=== PATIENT | male | born 1980 | race Two or more races ===

== ENCOUNTER 2025-04-05 06:12 | Inpatient (IN) | payer OTHER ==
[2025-04-05] VITALS (24 sets, daily range): BP systolic 121–160; BP diastolic 74–104; PULSE 108–150; RESP 14–25; TEMP 98–98.2; O2SAT 89–97
[~2025-04-05] VITALS: Ht 175.3 cm; Wt 92.3 kg
[2025-04-05] MEDS: ONDANSETRON HCL 4 MG/2 ML VIAL IV ONE ×2 (06:31→09:26)
[2025-04-05] MEDS: SODIUM CHLORIDE 0.9% 1,000 ML IV ONE ×2 (06:31→11:20)
[2025-04-05] MEDS: MORPHINE SULFATE 4 MG/ML SYR/VIAL IV ONE ×2 (06:32→09:27)
[2025-04-05 06:49] LABS: Hematocrit 46.7 % (41.0-53.0); Hemoglobin 16.0 g/dL (13.5-17.5); Mean Corpuscular Hemoglobin 32.2 pg (28.0-32.0); Mean Corpuscular Volume 93.9 fL (80.0-100.0); Nucleated Red Blood Cells % 0.1 %
--- NOTE | 2025-04-05 06:54 | ED.PDOC ---
GI ASSESSMENT HPI Comments 44 y/o M, brought in by [facility], with PMHx of HTN, kidney disease, and prostate issues presents to the ED for CC of abdominal pain. Per [facility] medic, patient is coming from [facility] where he c/o abdominal pain onset, x2day. [employer] medic reports, while at their facility patient was diagnosed with pancreatitis, and transferred out to [facility] for a higher level of care. In route to the ED, patient was hypertensive in the 200's and was given 0.4mg of Nitro, Labetalol, and 4mg Zofran. Upon arrival to the Ed, patient remains hypertensive with a blood pressure of 185/111mmHg. At this time, patient c/o 7/10 periumbilical pain. Patient denies nausea, vomiting, diarrhea, fever, or chills. No other symptoms or modifying factors present at this time. Chief Complaint: Abdominal Pain Time Seen by MD: 06:20 Reviewed Notes: Nurses Notes, Trading Assistant Notes, Medications, Allergies Allergies: Coded Allergies: Bupropion (Verified Allergy, Intermediate, EDEMA/RASHES, 04/05/25) Information Source: Patient, Emergency Med Personnel Mode of Arrival: EMS Timing: Days Duration: Since onset Prehospital treatment: None Quality: None Vomitus: None Stool: Normal Severity: Moderate Recent: None Recent Hx of: None Pain Location: Periumbilical Modifying Factors: Nothing Associated sign and symptoms: Abdominal Pain Past Medical History PAST MEDICAL HISTORY: CKF, HTN Surgical History: Denies all surgeries Family History Family History: Unknown Social History Smoker: Non-Smoker Alcohol: Denies ETOH Use Drugs: Denies Drug Use Lives In: Home Constitutional: denies: chills, diaphoresis, fatigue, fever, malaise, sweats, weakness, others EENTM: denies: blurred vision, double vision, ear bleeding, ear discharge, ear drainage, ear pain, ear ringing, eye pain, eye redness, hearing loss, mouth pain, mouth swelling, nasal discharge, nose bleeding, nose congestion, nose pain, photophobia, tearing, throat pain, throat swelling, voice changes, others Respiratory: denies: cough, hemoptysis, orthopnea, SOB at rest, shortness of breath, SOB with excertion, stridor, wheezing, others Cardiovascular: denies: chest pain, dizzy spells, diaphoresis, Dyspnea on exertion, edema, irregular heart beat, left arm pain, lightheadedness, palpitations, PND, syncope, others Gastrointestinal: reports: abdominal pain; denies: abdomen distended, blood streaked bowels, constipated, diarrhea, dysphagia, difficulty swallowing, hematemesis, melena, nausea, poor appetite, poor fluid intake, rectal bleeding, rectal pain, vomiting, others Genitourinary: denies: burning, dysuria, flank pain, frequency, hematuria, incontinence, penile discharge, penile sore, pain, testicle pain, testicle swelling, urgency, others Neurological: denies: dizziness, fainting, headache, left sided numbness, left sided weakness, numbness, paresthesia, pre-existing deficit, right sided numbness, right sided weakness, seizure, speech problems, tingling, tremors, weakness, others Musculoskeletal: denies: back pain, gout, joint pain, joint swelling, muscle pain, muscle stiffness, neck pain, others Integumetry: denies: bruises, change in color, change in hair/nails, dryness, laceration, lesions, lumps, rash, wounds, others Allergic/Immunocompromised: denies: Difficulty Healing, Frequent Infections, Hives, Itching, others Hematologic/Lymphatic: denies: anemia, blood clots, easy bleeding, easy bruising, swollen glands, others Endocrine: denies: excessive hunger, excessive sweating, excessive thirst, excessive urination, flushing, intolerance to cold, intolerance to heat, unexplained weight gain, unexplained weight loss, others Psychiatric: denies: anxiety, bipolar disorder, depression, hopeless, panic disorder, schizophrenia, sleepless, suicidal, others All Other Systems: Reviewed and Negative Physical Exam General Appearance: No Apparent Distress, Normal HEENT: Normal ENT Inspection, Pharynx Normal Neck: Full Range of Motion, Non-Tender, Normal, Normal Inspection Respiratory: Chest Non-Tender, Lungs Clear, No Accessory Muscle Use, No Respiratory Distress, Normal Breath Sounds Cardiovascular: No Edema, No Murmur, No Gallop, Normal Peripheral Pulses, Regular Rate/Rhythm Breast Exam: Deferred Gastrointestinal: No Organomegaly, No Pulsatile Mass, Normal Bowel Sounds, Tenderness (periumbilical ) Genitalia: Deferred Pelvic: Deferred Rectal: Deferred Extremities: No calf tenderness, Normal capillary refill, Normal inspection, Normal range of motion, Non-tender, No pedal edema Musculoskeletal : Apperance: Normal Neurologic: Alert, die try out worker II-XII nml as Tested, No Motor Deficits, Normal Affect, Normal Mood, No Sensory Deficits Cerebellar Function: Normal Reflexes: Normal Skin: Dry, Normal Color, Warm Lymphatic: No Adenopathy Was a procedure done? Was a procedure done?: No GI differential Dx Differential Diagnosis: Pancreatitis X-Ray, Labs, Meds, VS Vital Signs Date Time Temp Pulse Resp B/P (MAP) Pulse Ox O2 Delivery O2 Flow Rate FiO2 04/05/25 07:02 105 19 177/125 (142) 94 04/05/25 07:01 101 19 177/125 04/05/25 06:40 94 Room Air* 0 21 04/05/25 06:38 97.9 121 18 186/117 (140) 95 97.9 04/05/25 06:32 102 17 186/117 04/05/25 06:26 99.6 105 16 185/111 (135) 96 99.6 Lab Test 04/05/25 06:30 Range/Units White Blood Count 12.3 H 4.4-10.8 10^3/uL Red Blood Count 4.98 4.5-5.90 10^6/uL Hemoglobin 16.0 13.5-17.5 g/dL Hematocrit 46.7 41.0-53.0 % Mean Corpuscular Volume 93.9 80.0-100.0 fL Mean Corpuscular Hemoglobin 32.2 H 28.0-32.0 pg Mean Corpuscular Hemoglobin Concent 34.3 32.0-36.0 g/dL Red Cell Distribution Width 15.2 H 11.8-14.3 % Platelet Count 326 140-450 10^3/uL Mean Platelet Volume 7.6 6.9-10.8 fL Neutrophils (%) (Auto) 83.9 H 37.0-80.0 % Lymphocytes (%) (Auto) 7.3 L 10.0-50.0 % Monocytes (%) (Auto) 8.0 0.0-12.0 % Eosinophils (%) (Auto) 0.1 0.0-7.0 % Basophils (%) (Auto) 0.7 0.0-2.0 % Neutrophils # (Auto) 10.3 H 1.6-8.6 10 ^3/uL Lymphocytes # (Auto) 0.9 0.4-5.4 10 ^3/uL Monocytes # (Auto) 1.0 0-1.3 10 ^3/uL Eosinophils # (Auto) 0 0-0.8 10 ^3/uL Basophils # (Auto) 0.1 0-0.2 10 ^3/uL Nucleated Red Blood Cells 0.1 % Sodium Level 136 136-145 mmol/L Potassium Level 4.6 3.5-5.1 mmol/L Chloride Level 103 98-107 mmol/L Carbon Dioxide Level 24 20-31 mmol/L Anion Gap 9 5-15 Blood Urea Nitrogen 8 L 9-23 mg/dL Creatinine 1.28 0.700-1.30 mg/dL Glomerular Filtration Rate Calc 70 >90 mL/min BUN/Creatinine Ratio 6.3 L 10.0-20.0 Serum Glucose 140 H 74-106 mg/dL Calcium Level 11.2 H 8.7-10.4 mg/dL Total Bilirubin 0.9 0.2-1.0 mg/dL Aspartate Amino Transferase (AST) 35 13-40 U/L Alanine Aminotransferase (ALT) 15 7-40 U/L Alkaline Phosphatase 54 46-116 U/L Total Protein 7.1 5.7-8.2 g/dL Albumin 4.9 H 3.2-4.8 g/dL Lipase 495 H 12-53 U/L Current Medications Medications (Trade) Dose Ordered Sig/Yunior Route Start Time Stop Time Status Last Admin Sodium Chloride 1,000 ml @ 1,000 mls/hr Q1H ONCE IV 04/05/25 06:30 04/05/25 07:29 DC 04/05/25 06:31 Ondansetron HCl (Zofran) 4 mg ONCE ONCE IV 04/05/25 06:30 04/05/25 06:31 DC 04/05/25 06:31 Morphine Sulfate 4 mg ONCE ONCE IV 04/05/25 06:30 04/05/25 06:31 DC 04/05/25 06:32 Time of 1ST Reevaluation: 06:50 Reevaluation 1ST: Unchanged Patient Education/Counseling: Diagnosis, Treatment Family Education/Counseling: No Family Present SEPSIS Sepsis Screen Date sepsis recognized/suspect: Apr 05, 2025 Time Sepsis recognized/suspect: 611 Recent Procedure: No On Antibiotic Therapy: No Respiratory Rate >20: No Heart Rate >90: Yes Temp<36 C (96.8 F) or >38.3 C: No SBP <90 or MAP <65 mmHG: No New Acute Mental Status Change: No Is the patient on CPAP, BIPAP,: No Physician Orders Urinalysis (04/05/25 06:18) Vital Signs Date Time Temp Pulse Resp B/P (MAP) Pulse Ox O2 Delivery O2 Flow Rate FiO2 04/05/25 07:02 105 19 177/125 (142) 94 04/05/25 07:01 101 19 177/125 04/05/25 06:40 94 Room Air* 0 21 04/05/25 06:38 97.9 121 18 186/117 (140) 95 97.9 04/05/25 06:32 102 17 186/117 04/05/25 06:26 99.6 105 16 185/111 (135) 96 99.6 Laboratory Tests Test 04/05/25 06:30 White Blood Count 12.3 10^3/uL (4.4-10.8) H Medications Medications Dose Ordered Sig/Yunior Route Start Time Stop Time Status Last Admin Dose Admin Morphine Sulfate 4 mg ONCE ONCE IV 04/05/25 06:30 04/05/25 06:31 DC 04/05/25 06:32 Ondansetron HCl 4 mg ONCE ONCE IV 04/05/25 06:30 04/05/25 06:31 DC 04/05/25 06:31 Sodium Chloride 1,000 ml @ 1,000 mls/hr Q1H ONCE IV 04/05/25 06:30 04/05/25 07:29 DC 04/05/25 06:31 Departure 1 Departure Time of Disposition: 08:09 (Patient was a transfer from [facility]. Patient with necrotizing pancreatitis and intractable abdominal pains and with the outside hospital. Patient labs and CT scan performed there. Patient was treated with Zosyn. We will give patient fluids antibiotics pain medication and admit patient for further workup) Impression: Primary Impression: Acute necrotizing pancreatitis Additional Impression: Intractable abdominal pain Disposition: 09 ADMITTED INPATIENT Admit to: Med Surg Condition: Guarded Critical Care Note Critical Care Time?: Yes Critical care comment: Intractable abdominal pain Authorized and Performed by: Rohini Villar MD Total critical care time: Approximately thirty-nine minutes Due to a high probability of clinically significant, life threatening deterioration, the patient required my highest level of preparedness to intervene emergently and I personally spent this critical care time directly and personally managing the patient. This critical care time included obtaining a history; examining the patient; pulse oximetry; ordering and review of studies; arranging urgent treatment with development of a management plan; evaluation of patient's response to treatment; frequent reassessment; and, discussions with other providers. This critical care time was performed to assess and manage the high probability of imminent, life-threatening deterioration that could result in multi-organ failure. It was exclusive of separately billable procedures and treating other patients and teaching time. Please see my other sections and the rest of the note for further information on patient assessment and treatment. Stability Stability form required: No Heart Score Heart Score: Heart Score Response (Comments) Value History N/A 0 EKG N/A 0 Age N/A 0 Risk Factors N/A 0 Troponin N/A 0 Total 0 I personally scribed for ROHINI VILLAR MD ([email or web address]) on 04/05/25 at 06:54. Electronically submitted by Loretta Palomo ([email or web address]). ROHINI VILLAR MD Apr 05, 2025 06:54
[2025-04-05 07:05] LABS: Alanine Aminotransferase 15 U/L (7-40); Alkaline Phosphatase 54 U/L (46-116); Anion Gap 9 (5-15); BUN/Creatinine Ratio 6.3 (10.0-20.0); Carbon Dioxide 24 mmol/L (20-31); Chloride 103 mmol/L (98-107); Potassium 4.6 mmol/L (3.5-5.1); Sodium 136 mmol/L (136-145); Total Protein 7.1 g/dL (5.7-8.2)
[2025-04-05 07:06] LABS: Albumin 4.9 g/dL (3.2-4.8); Bilirubin, Total 0.9 mg/dL (0.2-1.0); Blood Urea Nitrogen 8 mg/dL (9-23); Calcium 11.2 mg/dL (8.7-10.4); Glucose 140 mg/dL (74-106)
[2025-04-05 07:29] LABS: Lipase 495 U/L (12-53)
[2025-04-05] MEDS: LISINOPRIL 5 MG TAB PO ONE (08:23)
--- NOTE | 2025-04-05 08:29 | DVHHP2 ---
Review of Systems Allergies: Coded Allergies: Bupropion (Verified Allergy, Intermediate, EDEMA/RASHES, 04/05/25) Exam Vital Signs Vital Signs Date Time Temp Pulse Resp B/P (MAP) Pulse Ox O2 Delivery O2 Flow Rate FiO2 04/05/25 08:23 192/128 04/05/25 07:02 105 19 94 04/05/25 06:40 Room Air* 0 21 04/05/25 06:38 97.9 97.9 Labs/Xrays Labs Test 04/05/25 06:30 Range/Units White Blood Count 12.3 H 4.4-10.8 10^3/uL Red Blood Count 4.98 4.5-5.90 10^6/uL Hemoglobin 16.0 13.5-17.5 g/dL Hematocrit 46.7 41.0-53.0 % Mean Corpuscular Volume 93.9 80.0-100.0 fL Mean Corpuscular Hemoglobin 32.2 H 28.0-32.0 pg Mean Corpuscular Hemoglobin Concent 34.3 32.0-36.0 g/dL Red Cell Distribution Width 15.2 H 11.8-14.3 % Platelet Count 326 140-450 10^3/uL Mean Platelet Volume 7.6 6.9-10.8 fL Neutrophils (%) (Auto) 83.9 H 37.0-80.0 % Lymphocytes (%) (Auto) 7.3 L 10.0-50.0 % Monocytes (%) (Auto) 8.0 0.0-12.0 % Eosinophils (%) (Auto) 0.1 0.0-7.0 % Basophils (%) (Auto) 0.7 0.0-2.0 % Neutrophils # (Auto) 10.3 H 1.6-8.6 10 ^3/uL Lymphocytes # (Auto) 0.9 0.4-5.4 10 ^3/uL Monocytes # (Auto) 1.0 0-1.3 10 ^3/uL Eosinophils # (Auto) 0 0-0.8 10 ^3/uL Basophils # (Auto) 0.1 0-0.2 10 ^3/uL Nucleated Red Blood Cells 0.1 % Sodium Level 136 136-145 mmol/L Potassium Level 4.6 3.5-5.1 mmol/L Chloride Level 103 98-107 mmol/L Carbon Dioxide Level 24 20-31 mmol/L Anion Gap 9 5-15 Blood Urea Nitrogen 8 L 9-23 mg/dL Creatinine 1.28 0.700-1.30 mg/dL Glomerular Filtration Rate Calc 70 >90 mL/min BUN/Creatinine Ratio 6.3 L 10.0-20.0 Serum Glucose 140 H 74-106 mg/dL Calcium Level 11.2 H 8.7-10.4 mg/dL Total Bilirubin 0.9 0.2-1.0 mg/dL Aspartate Amino Transferase (AST) 35 13-40 U/L Alanine Aminotransferase (ALT) 15 7-40 U/L Alkaline Phosphatase 54 46-116 U/L Total Protein 7.1 5.7-8.2 g/dL Albumin 4.9 H 3.2-4.8 g/dL Lipase 495 H 12-53 U/L SEPSIS Sepsis Screen Date sepsis recognized/suspect: Apr 05, 2025 Time Sepsis recognized/suspect: 641 Recent Procedure: No On Antibiotic Therapy: No Respiratory Rate >20: No Heart Rate >90: Yes (104BPM) Temp<36 C (96.8 F) or >38.3 C: No SBP <90 or MAP <65 mmHG: No New Acute Mental Status Change: No Is the patient on CPAP, BIPAP,: No Physician Orders Urinalysis (04/05/25 06:18) Vital Signs Date Time Temp Pulse Resp B/P (MAP) Pulse Ox O2 Delivery O2 Flow Rate FiO2 04/05/25 08:23 192/128 04/05/25 07:02 105 19 177/125 (142) 94 04/05/25 07:01 101 19 177/125 04/05/25 06:40 94 Room Air* 0 21 04/05/25 06:38 97.9 121 18 186/117 (140) 95 97.9 04/05/25 06:32 102 17 186/117 04/05/25 06:26 99.6 105 16 185/111 (135) 96 99.6 Laboratory Tests Test 04/05/25 06:30 White Blood Count 12.3 10^3/uL (4.4-10.8) H Medications Medications Dose Ordered Sig/Yunior Route Start Time Stop Time Status Last Admin Dose Admin Lisinopril 10 mg ONCE ONCE PO 04/05/25 08:15 04/05/25 08:17 DC 04/05/25 08:23 10 MG Morphine Sulfate 4 mg ONCE ONCE IV 04/05/25 06:30 04/05/25 06:31 DC 04/05/25 06:32 4 MG Ondansetron HCl 4 mg ONCE ONCE IV 04/05/25 06:30 04/05/25 06:31 DC 04/05/25 06:31 4 MG Sodium Chloride 1,000 ml @ 1,000 mls/hr Q1H ONCE IV 04/05/25 06:30 04/05/25 07:29 DC 04/05/25 06:31 1,000 MLS/HR Assessment/Plan Assessment/Plan acute pancreatitis ordered ct scan fu results Ordered Zosyn ordered IV fluids N.p.o. Ordered Dilaudid as needed for pain will order am lipase ldh, crp Replace electrolytes acute hypertension emergency ordered hydralazine prn elevated blood pressure acute leukocytosis ordered zosyn chronic problems htn kidney disease prostate issues ckf htn fen/ppx npo ivf protonix scd plan admit to medicine MASOUD MCCALLUM [facility] Apr 05, 2025 08:29
[2025-04-05] MEDS: LABETALOL HCL 20 MG/4 ML VL IV ONE ×2 (09:26→13:13)
[2025-04-05] MEDS: PIPERACILLIN-TAZOB 3.375GM 100 ML IV ONE ×2 (09:34→10:15)
--- NOTE | 2025-04-05 09:48 | PRN ---
Misceleneous Note Note Note Patient was transferred here for higher level of care when reviewing his CT scan of the abdomen pelvis with IV contrast from outside hospital patient was found to have necrotizing pancreatitis. Prior to my admission patient will need to have agreement with GI that they will follow up with the patient. Informed ER two consult GI. Did talk with surgery stating that this is not a surgical patient. We will hold admission until ER speaks to GI MASOUD MCCALLUM DNP Apr 05, 2025 09:48
--- NOTE | 2025-04-05 09:54 | DVH ---
INDICATION: PANCREATITIS TECHNIQUE: Multiple real-time sonographic images were obtained of the right upper quadrant. COMPARISON: None FINDINGS: The liver demonstrates coarsened echotexture without focal mass lesions. The liver measures 17 cm. There is no intrahepatic or extrahepatic ductal dilatation. The common duct measures 5 mm. Trace ascites. The gallbladder is without evidence of stone or sludge. The gallbladder wall measures 3 mm and is wi thin normal limits. The right kidney measures 11.3 cm. The right kidney is normal in contour, size, and shape. The echog enicity is normal. There is no hydronephrosis. The pancreas is not well visualized due to overlying bowel gas. IMPRESSION: Coarsened liver echotexture. Trace ascites. No shadowing gallstones.
[2025-04-05] MEDS: SODIUM CHLORIDE 0.9% 1,000 ML IV SCH ×2 (09:56→11:08)
[2025-04-05] MEDS ORDERED: DOCUSATE SOD 100 MG CAP PO PRN (10:15)
[2025-04-05] MEDS ORDERED: NITROGLYCERIN 0.4 MG SL TAB SL PRN (10:15)
[2025-04-05] MEDS ORDERED: ONDANSETRON HCL 4 MG/2 ML VIAL IV PRN (10:15)
--- NOTE | 2025-04-05 10:20 | DVHHP2 ---
History of Present Illness Reason for Visit: transfer for pancreatitis History of Present Illness 44-year-old male past medical history hypertension kidney disease prostate issues CK F chief complaint [facility] [employer] [facility] has been medically there he was transferred from Replaced by [facility] due to having acute pancreatitis. Patient states he had being smears abdominal pain for two days he did state he has a nausea and vomiting but there was no blood in his vomiting no diarrhea he has no fever no chest pain no shortness with the breath patient has no history of pancreatitis in the past when speaking with him he denies drinking smoking or drug use. When evaluating patient's chart from prior patient was found to have a CT scan with IV contrast showing necrotizing pancreatitis. Patient was also found to be hypertension [id number]. With the heart rate of 110. When evaluating patient's labs and imaging from here lisinopril was provided morphine and Zofran normal saline was given white count was 12.3 calcium 11.2 albumin was found to be 4.9, lipase was found to be 495 otherwise CBC and CMP unremarkable reviewed CT scan with shows necrotizing pancreatitis. With these findings we will admit. This speak with GI team states we will follow patient monitor patient's while admitted. Past Medical History See HPI above Past Surgical History See HPI above Family History Reviewed, non-contributory to the management of this case. Past Social History The patient lives at home, denies smoking, alcohol or illicit drugs abuse. Review of Systems Constitutional: No: Fever, Chills, Sweats, Weakness, Malaise, Other Eyes: No: Pain, Vision change, Conjunctivae inflammation, Eyelid inflammation, Other, Redness ENT: No: Ear pain, Ear discharge, Nose pain, Nose discharge, Nose congestion, Mouth pain, Mouth swelling, Throat pain, Throat swelling, Other Respiratory: No: Cough, Dry, Shortness of breath, SOB with excertion, Wheezing, Hemoptysis, Pleuritic Pain, Sputum, Wheezing, Other Cardiovascular: No: Chest Pain, Palpitations, Orthopnea, Paroxysmal Noc. Dyspnea, Edema, Lt Headedness, Other Gastrointestinal: Nausea, Vomiting, Abdominal Pain; No: Diarrhea, Constipation, Melena, Hematochezia, Other Genitourinary: No Dysuria, No Frequency, No Incontinence, No Hematuria, No Retention, No Other Musculoskeletal: No: other, neck pain, shoulder pain, arm pain, back pain, hand pain, leg pain, foot pain Skin: No: Rash, Lesions, Jaundice, Bruising, Other Neurological: No: Weakness, Numbness, Incoordination, Change in speech, Confusion, Seizures, Other Allergies: Coded Allergies: Bupropion (Verified Allergy, Intermediate, EDEMA/RASHES, 04/05/25) Medications Current Medications Medications Dose Ordered Sig/Yunior Route Start Time Stop Time Status Last Admin Dose Admin Sodium Chloride 1,000 ml @ 100 mls/hr Q10H IV 04/05/25 09:30 04/05/25 09:56 100 MLS/HR Exam Vital Signs Vital Signs Date Time Temp Pulse Resp B/P (MAP) Pulse Ox O2 Delivery O2 Flow Rate FiO2 04/05/25 09:57 94 18 146/94 04/05/25 09:42 98 04/05/25 07:30 98.0 98.0 04/05/25 07:30 Room Air* 0 21 General Appearance: Alert, Oriented X3, Cooperative, mild distress HEENT: Atraumatic, PERRLA, EOMI, Mucous membr. moist/pink Respiratory: Clear to auscultation, Normal air movement Cardiovascular: Regular rate, Normal S1, Normal S2, No murmurs Abdominal: Normal bowel sounds, Soft, No hepatospenomegaly, No masses, Other (upper abd guarding and rebound tenderness) Extremities: No clubbing, No cyanosis, No edema, Normal pulses, No tenderness/swelling Skin: No rashes, No breakdown, No significant lesion Neuro: Normal gait, Normal speech, Strength at 5/5 X4 ext, Normal tone, Sensation intact, Cranial nerves 3-12 NL Psych/Mental Status: Mental status NL, Mood NL Labs/Xrays Reviewed CT scan from outside hospital shows necrotizing pancreatitis I reviewed labs, imaging CT scan abdomen pelvis, EKG and all diagnostic studies on this patient from ED records and the medical chart Labs Test 04/05/25 06:30 Range/Units White Blood Count 12.3 H 4.4-10.8 10^3/uL Red Blood Count 4.98 4.5-5.90 10^6/uL Hemoglobin 16.0 13.5-17.5 g/dL Hematocrit 46.7 41.0-53.0 % Mean Corpuscular Volume 93.9 80.0-100.0 fL Mean Corpuscular Hemoglobin 32.2 H 28.0-32.0 pg Mean Corpuscular Hemoglobin Concent 34.3 32.0-36.0 g/dL Red Cell Distribution Width 15.2 H 11.8-14.3 % Platelet Count 326 140-450 10^3/uL Mean Platelet Volume 7.6 6.9-10.8 fL Neutrophils (%) (Auto) 83.9 H 37.0-80.0 % Lymphocytes (%) (Auto) 7.3 L 10.0-50.0 % Monocytes (%) (Auto) 8.0 0.0-12.0 % Eosinophils (%) (Auto) 0.1 0.0-7.0 % Basophils (%) (Auto) 0.7 0.0-2.0 % Neutrophils # (Auto) 10.3 H 1.6-8.6 10 ^3/uL Lymphocytes # (Auto) 0.9 0.4-5.4 10 ^3/uL Monocytes # (Auto) 1.0 0-1.3 10 ^3/uL Eosinophils # (Auto) 0 0-0.8 10 ^3/uL Basophils # (Auto) 0.1 0-0.2 10 ^3/uL Nucleated Red Blood Cells 0.1 % Sodium Level 136 136-145 mmol/L Potassium Level 4.6 3.5-5.1 mmol/L Chloride Level 103 98-107 mmol/L Carbon Dioxide Level 24 20-31 mmol/L Anion Gap 9 5-15 Blood Urea Nitrogen 8 L 9-23 mg/dL Creatinine 1.28 0.700-1.30 mg/dL Glomerular Filtration Rate Calc 70 >90 mL/min BUN/Creatinine Ratio 6.3 L 10.0-20.0 Serum Glucose 140 H 74-106 mg/dL Calcium Level 11.2 H 8.7-10.4 mg/dL Total Bilirubin 0.9 0.2-1.0 mg/dL Aspartate Amino Transferase (AST) 35 13-40 U/L Alanine Aminotransferase (ALT) 15 7-40 U/L Alkaline Phosphatase 54 46-116 U/L Total Protein 7.1 5.7-8.2 g/dL Albumin 4.9 H 3.2-4.8 g/dL Lipase 495 H 12-53 U/L SEPSIS Sepsis Screen Date sepsis recognized/suspect: Apr 05, 2025 Time Sepsis recognized/suspect: 729 Recent Procedure: No On Antibiotic Therapy: Yes Respiratory Rate >20: No Heart Rate >90: Yes Temp<36 C (96.8 F) or >38.3 C: No SBP <90 or MAP <65 mmHG: No New Acute Mental Status Change: No Is the patient on CPAP, BIPAP,: No Physician Orders Urinalysis (04/05/25 06:18) * Gi Dvh Pesticide Applicator (04/05/25 09:17) Abdomen Limited (04/05/25 09:17) Sodium Chloride 0.9% (04/05/25 09:30) Piperacillin-Tazob 3.375gm (Zosyn 3.375g (04/05/25 09:30) * Surgical Consult (04/05/25 ) Admit (04/05/25 10:03) Allergies (04/05/25 10:03) Code Status (04/05/25 10:03) 0.9% Ns 1000 Ml (04/05/25 10:15) Ondansetron Hcl (Zofran) (04/05/25 10:15) Docusate Sodium Capsule (Colace Capsule) (04/05/25 10:15) Complete Blood Count (04/06/25 04:00) Comprehensive Metabolic Panel (04/06/25 04:00) Npo (Nothing By Mouth) Diet (04/05/25 Lunch) Condition: Serious (04/05/25 10:03) BRP (04/05/25 10:03) Morphine Sulfate Injection (04/05/25 10:15) Nitroglycerin Sublingual (Ntrostat Subli (04/05/25 10:15) Stat Ekg For Chest Pain (04/05/25 10:03) Notify Md Of Changes From Base (04/05/25 10:03) Tow Motor Driver For 24 Hours (04/05/25 10:03) Emergency Dysrhythmia Protocol (04/05/25 10:03) Rhythm Strips Once Every Shift (04/05/25 10:03) Oxygen By Nasal Cannula (04/05/25 10:03) Zosyn Extended Infusion (04/05/25 12:00) Zosyn Extended Infusion (04/05/25 10:15) Blood Culture (04/05/25 10:03) Lipase (04/06/25 04:00) Vital Signs Date Time Temp Pulse Resp B/P (MAP) Pulse Ox O2 Delivery O2 Flow Rate FiO2 04/05/25 09:57 94 18 146/94 04/05/25 09:42 110 18 159/96 (117) 98 04/05/25 09:27 105 18 200/124 04/05/25 09:26 105 200/124 04/05/25 09:07 108 04/05/25 08:23 192/128 04/05/25 07:30 98.0 108 14 181/137 (152) 94 98.0 04/05/25 07:30 108 14 94 Room Air* 0 21 04/05/25 07:02 105 19 177/125 (142) 94 04/05/25 07:01 101 19 177/125 04/05/25 06:40 94 Room Air* 0 04/05/25 06:38 97.9 121 18 186/117 (140) 95 97.9 04/05/25 06:32 102 17 186/117 04/05/25 06:26 99.6 105 16 185/111 (135) 96 99.6 Laboratory Tests Test 04/05/25 06:30 White Blood Count 12.3 10^3/uL (4.4-10.8) H Medications Medications Dose Ordered Sig/Yunior Route Start Time Stop Time Status Last Admin Dose Admin Labetalol HCl 20 mg ONCE ONCE IV 04/05/25 09:15 04/05/25 09:16 DC 04/05/25 09:26 20 MG Lisinopril 10 mg ONCE ONCE PO 04/05/25 08:15 04/05/25 08:17 DC 04/05/25 08:23 10 MG Morphine Sulfate 4 mg ONCE ONCE IV 04/05/25 06:30 04/05/25 06:31 DC 04/05/25 06:32 4 MG Morphine Sulfate 4 mg ONCE ONCE IV 04/05/25 09:15 04/05/25 09:16 DC 04/05/25 09:27 4 MG Ondansetron HCl 4 mg ONCE ONCE IV 04/05/25 06:30 04/05/25 06:31 DC 04/05/25 06:31 4 MG Ondansetron HCl 4 mg ONCE ONCE IV 04/05/25 09:15 04/05/25 09:16 DC 04/05/25 09:26 4 MG Piperacillin Sod/ Tazobactam Sod 100 ml @ 100 mls/hr ONCE ONCE IV 04/05/25 09:30 04/05/25 10:29 04/05/25 09:34 100 MLS/HR Sodium Chloride 1,000 ml @ 100 mls/hr Q10H IV 04/05/25 09:30 04/05/25 09:56 100 MLS/HR Sodium Chloride 1,000 ml @ 1,000 mls/hr Q1H ONCE IV 04/05/25 06:30 04/05/25 07:29 DC 04/05/25 06:31 1,000 MLS/HR Assessment/Plan Assessment/Plan acute necrotizing pancreatitis found on outside ct scan from [facility] Ordered Zosyn ordered IV fluids N.p.o. Ordered morphine as needed for pain will order am lipase Replace electrolytes ordered GI consult fu results ordered us fu results ordered am lipase acute hypertension emergency ordered labetolol prn elevated blood pressure if persistent elevation will need to consider nicardipine drip acute hypercalcemia corrected ca 10.48 ordered ivf for now acute leukocytosis likely from pancreatitis ordered zosyn chronic problems htn kidney disease prostate issues ckf htn fen/ppx npo ivf protonix scd plan admit to medicine Plan discussed with: Patient My Orders Orders - MASOUD MCCALLUM DNP Procedure Category Date Status Time * Gi Dvh Pesticide Applicator CONS 04/05/25 Transmitted 09:17 Abdomen Limited US 04/05/25 Resulted 09:17 Sodium Chloride 0.9% PHA 04/05/25 In Process 09:30 Piperacillin-Tazob PHA 04/05/25 In Process 3.375gm (Zosyn 3.375g 09:30 * Surgical Consult CONS 04/05/25 Transmitted Admit ADMIT 04/05/25 Verified 10:03 Allergies ANDRA 04/05/25 Verified 10:03 Code Status CODE 04/05/25 Verified 10:03 0.9% Ns 1000 Ml PHA 04/05/25 Verified 10:15 Ondansetron Hcl PHA 04/05/25 Verified (Zofran) 10:15 Docusate Sodium PHA 04/05/25 Verified Capsule (Colace 10:15 Complete Blood Count LAB 04/06/25 Verified 04:00 Comprehensive LAB 04/06/25 Verified Metabolic Panel 04:00 Npo (Nothing By DIET 04/05/25 Verified Mouth) Diet Lunch Condition: Serious ANDRA 04/05/25 Verified 10:03 BRP [facility] 04/05/25 Verified 10:03 Morphine Sulfate PHA 04/05/25 Verified Injection 10:15 Nitroglycerin PHA 04/05/25 Verified Sublingual (Ntrostat 10:15 Stat Ekg For Chest [facility] 04/05/25 Verified Pain 10:03 Notify Md Of Changes [facility] 04/05/25 Verified From Base 10:03 Tow Motor Driver For [facility] 04/05/25 Verified 24 Hours 10:03 Emergency Dysrhythmia [facility] 04/05/25 Verified Protocol 10:03 Rhythm Strips Once [facility] 04/05/25 Verified Every Shift 10:03 Oxygen By Nasal RT 04/05/25 Verified Cannula 10:03 Zosyn Extended PHA 04/05/25 Verified Infusion 12:00 Zosyn Extended PHA 04/05/25 Verified Infusion 10:15 Blood Culture KRISTA 04/05/25 Verified 10:03 Lipase LAB 04/06/25 Verified 04:00 Date of Service: Apr 05, 2025 Billing Provider: MASOUD MCCALLUM DNP Common Visit Codes: [id number] INP/OBS CARE (HIGH) MASOUD MCCALLUM DNP Apr 05, 2025 10:20
[2025-04-05] MEDS ORDERED: PIPERACILLIN-TAZOB 3.375GM 100 ML IV SCH (12:00)
[2025-04-05] MEDS: MORPHINE SULFATE INJ 2 MG/ml SYRG IV PRN (12:11)
--- NOTE | 2025-04-05 12:31 | DVHINCON2 ---
GI Consult Consult Note GI consult note Date of Consultation: 04/05/2025 Chief Complaint: Pancreatitis Referring Physician: Pawan NAVAS H&P: 44-year-old male brought in by the [facility], with past medical history of hypertension, kidney stones and prostate issues with complains of abdominal pain and diagnosed with possible necrotizing pancreatitis by CT abdomen pelvis with IV contrast at the [facility] Patient admits to abdominal pain for two days, periumbilical to generalized area. No nausea or vomiting. Denies melena or red blood in stool. Patient denies alcohol use. No history of hepatitis. Admits to being diagnosed with elevated cholesterol and triglycerides about a year and a half ago, no treatment for this Past Medical History: CKF, hypertension, kidney stones Past Surgical History: Denies Social History: NO smoking, drinking ETOH and use of illegal drugs. Family History: Noncontributory Review of Systems: Constitutional: no fever, chill, weight loss HEENT: no eye pain, no hearing loss, no oral lesion, no scleral icterus Heart: no chest pain, no chest pressure Lung: no cough, no dyspnea with exertion Abdomen: see HPI Physical exam: General: NAD, AAOX3 Chest: lung elizabeth clear to auscultation Heart: RRR, no murmur Abdomen: Upper abdomen tenderness to palpation, +BS, no hepatosplenomegaly Labs: Labs Test 04/05/25 06:30 Range/Units White Blood Count 12.3 H 4.4-10.8 10^3/uL Red Blood Count 4.98 4.5-5.90 10^6/uL Hemoglobin 16.0 13.5-17.5 g/dL Hematocrit 46.7 41.0-53.0 % Mean Corpuscular Volume 93.9 80.0-100.0 fL Mean Corpuscular Hemoglobin 32.2 H 28.0-32.0 pg Mean Corpuscular Hemoglobin Concent 34.3 32.0-36.0 g/dL Red Cell Distribution Width 15.2 H 11.8-14.3 % Platelet Count 326 140-450 10^3/uL Mean Platelet Volume 7.6 6.9-10.8 fL Neutrophils (%) (Auto) 83.9 H 37.0-80.0 % Lymphocytes (%) (Auto) 7.3 L 10.0-50.0 % Monocytes (%) (Auto) 8.0 0.0-12.0 % Eosinophils (%) (Auto) 0.1 0.0-7.0 % Basophils (%) (Auto) 0.7 0.0-2.0 % Neutrophils # (Auto) 10.3 H 1.6-8.6 10 ^3/uL Lymphocytes # (Auto) 0.9 0.4-5.4 10 ^3/uL Monocytes # (Auto) 1.0 0-1.3 10 ^3/uL Eosinophils # (Auto) 0 0-0.8 10 ^3/uL Basophils # (Auto) 0.1 0-0.2 10 ^3/uL Nucleated Red Blood Cells 0.1 % Sodium Level 136 136-145 mmol/L Potassium Level 4.6 3.5-5.1 mmol/L Chloride Level 103 98-107 mmol/L Carbon Dioxide Level 24 20-31 mmol/L Anion Gap 9 5-15 Blood Urea Nitrogen 8 L 9-23 mg/dL Creatinine 1.28 0.700-1.30 mg/dL Glomerular Filtration Rate Calc 70 >90 mL/min BUN/Creatinine Ratio 6.3 L 10.0-20.0 Serum Glucose 140 H 74-106 mg/dL Calcium Level 11.2 H 8.7-10.4 mg/dL Total Bilirubin 0.9 0.2-1.0 mg/dL Aspartate Amino Transferase (AST) 35 13-40 U/L Alanine Aminotransferase (ALT) 15 7-40 U/L Alkaline Phosphatase 54 46-116 U/L Total Protein 7.1 5.7-8.2 g/dL Albumin 4.9 H 3.2-4.8 g/dL Lipase 495 H 12-53 U/L Imaging: Report of CT abdomen and pelvis with contrast dated 04/05/2025 Pancreas: Peripancreatic edema mostly involving the body and tail of pancreas. There is slightly decreased enhancement of the distal tail of the pancreas. No significant fluid collection or evidence of an abscess. No ductal dilation Impression Acute pancreatitis. Subtle decreased enhancement of the distal tail is concerning for necrotizing pancreatitis Abnormal penile calcifications Assessment: Acute necrotizing pancreatitis Abdominal pain Plan: -discussed with Dr. Dean CT scan was also reviewed with Dr. Dean Recommend admission to this hospital with close monitoring of patient IV fluid IV antibiotic NPO Possible repeat CT scan with contrast if needed in 48 hours Higher level of care recommended if patient symptoms worsen We will follow patient Discussed plan with patient, RN and Pawan NAVAS Thank you for this consult Date of Service: Apr 05, 2025 Billing Provider: SALAS JACKSON Common Visit Codes: CONSULT ONLY Consultation Codes: [id number] CONSULT <60MIN SALAS JACKSON Apr 05, 2025 12:31
--- NOTE | 2025-04-05 12:46 | DVHINCON2 ---
Date of service: Apr 05, 2025 Allergies: Coded Allergies: Bupropion (Verified Allergy, Intermediate, EDEMA/RASHES, 04/05/25) Current Medications Current Medications Medications (Trade) Dose Ordered Sig/Yunior Route PRN Reason Start Time Stop Time Status Last Admin Sodium Chloride 1,000 ml @ 100 mls/hr Q10H IV 04/05/25 09:30 04/05/25 11:17 DC 04/05/25 09:56 Sodium Chloride 1,000 ml @ 120 mls/hr Q8H20M IV 04/05/25 10:15 04/05/25 11:08 Ondansetron HCl (Zofran) 4 mg Q4HP PRN IV NAUSEA / VOMITING 04/05/25 10:15 Docusate Sodium (Colace Capsule) 100 mg BIDPRN PRN PO FOR CONSTIPATION 04/05/25 10:15 Morphine Sulfate 4 mg Q3HPRN PRN IV SEVERE PAIN (7-10 PAIN SCALE) 04/05/25 10:15 04/05/25 12:11 Nitroglycerin (Ntrostat Sublingual) 0.4 mg Q5MINP PRN SL FOR CHEST PAIN 04/05/25 10:15 Piperacillin Sod/ Tazobactam Sod 100 ml @ 25 mls/hr Q6HR IV 04/05/25 12:00 04/05/25 11:02 DC Piperacillin Sod/ Tazobactam Sod 100 ml @ 25 mls/hr Q8H IV 04/05/25 20:00 Nicardipine/ Sodium Chloride 200 ml @ 50 mls/hr Q4H IV 04/05/25 12:45 UNV Vital Signs Vital Signs Date Time Temp Pulse Resp B/P (MAP) Pulse Ox O2 Delivery O2 Flow Rate FiO2 04/05/25 12:11 98 17 171/113 04/05/25 12:00 98.1 94 98.1 04/05/25 07:30 Room Air* 0 21 Labs/Diagnostic Data Labs Test 04/05/25 06:30 Range/Units White Blood Count 12.3 H 4.4-10.8 10^3/uL Red Blood Count 4.98 4.5-5.90 10^6/uL Hemoglobin 16.0 13.5-17.5 g/dL Hematocrit 46.7 41.0-53.0 % Mean Corpuscular Volume 93.9 80.0-100.0 fL Mean Corpuscular Hemoglobin 32.2 H 28.0-32.0 pg Mean Corpuscular Hemoglobin Concent 34.3 32.0-36.0 g/dL Red Cell Distribution Width 15.2 H 11.8-14.3 % Platelet Count 326 140-450 10^3/uL Mean Platelet Volume 7.6 6.9-10.8 fL Neutrophils (%) (Auto) 83.9 H 37.0-80.0 % Lymphocytes (%) (Auto) 7.3 L 10.0-50.0 % Monocytes (%) (Auto) 8.0 0.0-12.0 % Eosinophils (%) (Auto) 0.1 0.0-7.0 % Basophils (%) (Auto) 0.7 0.0-2.0 % Neutrophils # (Auto) 10.3 H 1.6-8.6 10 ^3/uL Lymphocytes # (Auto) 0.9 0.4-5.4 10 ^3/uL Monocytes # (Auto) 1.0 0-1.3 10 ^3/uL Eosinophils # (Auto) 0 0-0.8 10 ^3/uL Basophils # (Auto) 0.1 0-0.2 10 ^3/uL Nucleated Red Blood Cells 0.1 % Sodium Level 136 136-145 mmol/L Potassium Level 4.6 3.5-5.1 mmol/L Chloride Level 103 98-107 mmol/L Carbon Dioxide Level 24 20-31 mmol/L Anion Gap 9 5-15 Blood Urea Nitrogen 8 L 9-23 mg/dL Creatinine 1.28 0.700-1.30 mg/dL Glomerular Filtration Rate Calc 70 >90 mL/min BUN/Creatinine Ratio 6.3 L 10.0-20.0 Serum Glucose 140 H 74-106 mg/dL Calcium Level 11.2 H 8.7-10.4 mg/dL Total Bilirubin 0.9 0.2-1.0 mg/dL Aspartate Amino Transferase (AST) 35 13-40 U/L Alanine Aminotransferase (ALT) 15 7-40 U/L Alkaline Phosphatase 54 46-116 U/L Total Protein 7.1 5.7-8.2 g/dL Albumin 4.9 H 3.2-4.8 g/dL Lipase 495 H 12-53 U/L Assessment 04/05/25 patient with 3 day history of abdominal pain, denies drinking any alcohol, ct scan with indication of necrotizing pancreatitis, abdomen distended tender but not rigid, no rebound tenderness, explained to patient that on occasion his condition may precipitate into a surgical condition which would need to be done at a facility more familiar with such conditions than we are here. Recommend transfer to a higher level of care for definitive treatment At present there is no indication for a surgical intervention. Plan discussed with: Patient AV ST MD Apr 05, 2025 12:46
--- NOTE | 2025-04-05 13:54 | DVH ---
CT HEAD WITHOUT CONTRAST INDICATION: DROWSY EXAM DATE: 04/05/2025 01:14 PM COMPARISON: None RADIATION DOSE: CTDIvol: 1170.65 mGy, DLP: 1168.94 mGy*cm PROCEDURE: CT scans of the head were obtained from the vertex to the skull base. Sagittal and coronal reconstructions were provided. All CT scans at this medical facility are performed using dose modulation techniques as appropriate t o a performed exam including the following: Automated exposure control was utilized; adjustment of th e MA and/or KV according to patient size; and use of iterative reconstruction technique. FINDINGS: There is sulcal and ventricular prominence. The brainshows normal morphology and delgado-whi te matter differentiation, without intracranial hemorrhage, extra-axial fluid collection, mass effect or acute large vessel infarct. The ventricles are normal in size. The basal cisterns are patent. The skull and visible facial bones are intact. The paranasal sinuses, mastoid air cells and middle ear c avities are well-aerated. The soft tissues of the scalp are unremarkable. IMPRESSION: No acute intracranial abnormality.
[2025-04-05 15:31] LABS: Urine Amorphous Crystal FEW /hpf (None Seen); Urine Protein, UAD 2+ (Negative)
[2025-04-05] MEDS: NICARDIPINE HCL IN SODIUM CHLO 200 ML IV SCH (15:51)
--- NOTE | 2025-04-05 17:43 | DVHNC2 ---
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) Indication: Volume resuscitation, Suspected infection, Other Room prepared for procedure: Yes Robotics Application Engineer performed hand hygien: Yes Maximal sterile barrier precau: Mask/Eye shield, Sterile gown, Cap, Sterlie gloves, Large sterlie drape Skin Preparation: Providine iodine Skin preparation completely dr: Yes Insertion site: Right, Internal jugular Central line catheter type: Oni-[id number] dialysis Number of lumens: 3 Central line exchanged over a: Yes Post Assessment: Chest X-Ray, Proper placement Informed consent obtained: Yes Date of Service: Apr 05, 2025 Billing Provider: RADHA DEGROOT MD Common Visit Codes: PROCEDURE ONLY KAIN KHANNA RESIDENT Apr 05, 2025 17:43
[2025-04-05] MEDS: PIPERACILLIN-TAZOB 3.375GM 100 ML IV SCH (19:59)
[2025-04-06] VITALS (57 sets, daily range): BP systolic 121–163; BP diastolic 74–103; PULSE 116–135; RESP 16–22; TEMP 98.6; O2SAT 89–96
[2025-04-06 03:49] LABS: Hematocrit 43.8 % (41.0-53.0); Hemoglobin 14.6 g/dL (13.5-17.5); Mean Corpuscular Hemoglobin 31.2 pg (28.0-32.0); Mean Corpuscular Volume 93.5 fL (80.0-100.0); Nucleated Red Blood Cells % 0.0 %
[2025-04-06 03:57] LABS: Alanine Aminotransferase 10 U/L (7-40); Albumin 4.6 g/dL (3.2-4.8); Anion Gap 7 (5-15); BUN/Creatinine Ratio 5.9 (10.0-20.0); Bilirubin, Total 1.0 mg/dL (0.2-1.0); Calcium 9.0 mg/dL (8.7-10.4); Carbon Dioxide 26 mmol/L (20-31); Chloride 106 mmol/L (98-107); Potassium 3.8 mmol/L (3.5-5.1); Sodium 139 mmol/L (136-145); Total Protein 6.7 g/dL (5.7-8.2)
[2025-04-06 03:58] LABS: Alkaline Phosphatase 45 U/L (46-116); Blood Urea Nitrogen 8 mg/dL (9-23); Glucose 145 mg/dL (74-106); Lipase 224 U/L (12-53)
--- NOTE | 2025-04-06 10:16 | DVH ---
EXAM: XY CHEST PORTABLE Indication: CENTRAL LINE PLACEMENT VERIFICATION Technique: Single frontal view of the chest was obtained Comparison: None FINDINGS: Lines and Tubes: Right internal jugular central venous catheter tip projects over the superior vena c dara. Lungs: Pulmonary vascular congestion. Pleura: No effusion. No pneumothorax. Cardiomediastinal contours: Unremarkable Bones: No acute osseous abnormality. IMPRESSION: Pulmonary vascular congestion. No acute cardiopulmonary disease.
--- NOTE | 2025-04-06 13:39 | DVHPN2 ---
Progress Note Date Seen: Apr 06, 2025 Medical Necessity Reason Pt with a Central, PICC or Fol: No Subjective Patient reports: No new complaints Review of Systems: HEENT:Normal, CVS:Normal, RESPIRATORY:Normal, GI:Normal, :Normal, MSK:Normal, NEURO:Normal Objective vital signs Vital Sign Date Time Temp Pulse Resp B/P (MAP) Pulse Ox O2 Delivery O2 Flow Rate FiO2 04/06/25 12:00 17 96 Nasal Cannula* 4 36 04/06/25 12:00 123 04/06/25 11:35 136/78 04/06/25 04:00 98.6 98.6 Total Intake and Output 04/05/25 04/05/25 04/06/25 15:00 23:00 07:00 Intake Total 1464 ml 1535 ml 1365 ml Output Total 650 ml 900 ml Balance 1464 ml 885 ml 465 ml medications Current Medications Medications Dose Ordered Sig/Yunior Route Start Time Stop Time Status Last Admin Dose Admin Sodium Chloride 1,000 ml @ 120 mls/hr Q8H20M IV 04/05/25 10:15 04/06/25 08:55 120 MLS/HR Ondansetron HCl 4 mg Q4HP PRN IV 04/05/25 10:15 Docusate Sodium 100 mg BIDPRN PRN PO 04/05/25 10:15 Morphine Sulfate 4 mg Q3HPRN PRN IV 04/05/25 10:15 04/06/25 11:05 4 MG Nitroglycerin 0.4 mg Q5MINP PRN SL 04/05/25 10:15 Piperacillin Sod/ Tazobactam Sod 100 ml @ 25 mls/hr Q8H IV 04/05/25 20:00 04/06/25 11:07 25 MLS/HR Nicardipine/ Sodium Chloride 200 ml @ 50 mls/hr Q4H IV 04/05/25 12:45 04/06/25 11:07 75 MLS/HR Examination: GENERAL:Normal, HEENT:Normal, NECK:Normal, LUNGS:Normal, CVS:Normal, ABDOMEN:Normal, ABDOMEN:Abnormal (DISTENSION), MSK:Normal, SKIN:Normal, NEURO:Normal, NEURO:Abnormal (tremors), :Normal laboratory and microbiology Laboratory Tests 04/06/25 03:28 Test 04/06/25 03:28 Range/Units Serum Glucose 145 H 74-106 mg/dL Microbiology Date/Time Source Procedure Growth Status 04/05/25 10:30 Blood Blood Culture - Preliminary NO GROWTH AFTER 24 HOURS OF INCUBATION. Resulted Problem List/Assessment/Plan Problem List/Assessment/Plan #1 acute pancreatitis/necrosis in tail: ivf, pain meds, npo #2 hypertensive emergency: on nicardipine drip #3 essential tremor #4 bph Plan discussed with: Patient Critical Care Time (mins): 41 (critical care time excluding procedures is 41 mins) Date of Service: Apr 06, 2025 Billing Provider: NAZARIO HARPER MD Common Visit Codes: [id number] CARE 30-74 MIN NAZARIO HARPER MD Apr 06, 2025 13:39
--- NOTE | 2025-04-06 13:47 | DVHPN2 ---
Progress Note - Dictate Date Seen: Apr 06, 2025 Medical Necessity Reason Pt with a Central, PICC or Fol: No Subjective Patient seen at bedside in ER bed eight Patient states his abdominal pain has improved Patient does have abdominal distention vital signs Vital Sign Date Time Temp Pulse Resp B/P (MAP) Pulse Ox O2 Delivery O2 Flow Rate FiO2 04/06/25 12:00 17 96 Nasal Cannula* 4 36 04/06/25 12:00 123 04/06/25 11:35 136/78 04/06/25 04:00 98.6 98.6 Total Intake and Output 04/05/25 04/05/25 04/06/25 15:00 23:00 07:00 Intake Total 1464 ml 1535 ml 1365 ml Output Total 650 ml 900 ml Balance 1464 ml 885 ml 465 ml medications Current Medications Medications Dose Ordered Sig/Yunior Route Start Time Stop Time Status Last Admin Dose Admin Ondansetron HCl 4 mg Q4HP PRN IV 04/05/25 10:15 Docusate Sodium 100 mg BIDPRN PRN PO 04/05/25 10:15 Morphine Sulfate 4 mg Q3HPRN PRN IV 04/05/25 10:15 04/06/25 11:05 4 MG Nitroglycerin 0.4 mg Q5MINP PRN SL 04/05/25 10:15 Piperacillin Sod/ Tazobactam Sod 100 ml @ 25 mls/hr Q8H IV 04/05/25 20:00 04/06/25 11:07 25 MLS/HR Nicardipine/ Sodium Chloride 200 ml @ 50 mls/hr Q4H IV 04/05/25 12:45 04/06/25 11:07 75 MLS/HR Sodium Chloride 1,000 ml @ 150 mls/hr Q6H40M IV 04/06/25 13:30 UNV Pantoprazole Sodium 40 mg DAILY IV 04/07/25 10:00 UNV objective General Appearance: Alert, Oriented X3, Cooperative, no distress HEENT: Atraumatic, PERRLA, EOMI, Mucous membr. moist/pink Respiratory: Clear to auscultation, Normal air movement Cardiovascular: Regular rate, Normal S1, Normal S2, No murmurs Abdominal: Normal bowel sounds, Soft, No hepatospenomegaly, No masses, abdominal distention with hypoactive bowel sounds Extremities: No clubbing, No cyanosis, No edema, Normal pulses, No tenderness/swelling Skin: No rashes, No breakdown, No significant lesion Neuro: Normal gait, Normal speech, Strength at 5/5 X4 ext, Normal tone, Sensation intact, Cranial nerves 3-12 NL Psych/Mental Status: Mental status NL, Mood NL laboratory and microbiology Laboratory Tests 04/06/25 03:28 Test 04/06/25 03:28 Range/Units Serum Glucose 145 H 74-106 mg/dL Problems(with codes): (1) Acute necrotizing pancreatitis (2) Intractable abdominal pain (3) Ileus, unspecified Prognosis Plan Keep NPO IV fluid hydration IV Protonix 40 mg daily Broad-spectrum antibiotics NG tube to low intermittent suction Monitor labs No SIRS symptoms at this time Repeat CT abdomen in 24-48 hours to re-evaluate progression of pancreatitis Plan discussed with: Patient, Other (ER Nurse and Dr Workman) MIKI YEAGER MD Apr 06, 2025 13:47
[2025-04-06] MEDS: SODIUM CHLORIDE 0.9% 1,000 ML IV SCH (13:53)
[2025-04-06] MEDS: PANTOPRAZOLE 40 MG/10 ML VIAL INJ IV ONE (14:23)
--- NOTE | 2025-04-06 16:59 | DVH ---
EXAM: XY CHEST PORTABLE TECHNIQUE: Single frontal chest radiograph CLINICAL HISTORY: NG TUBE PLACEMENT COMPARISON: XY CHEST PORTABLE on DOS: 04/05/25 Findings/Impression: Frontal chest radiograph demonstrates no acute osseous or superficial soft tissue abnormalities. Right IJ catheter terminates near the proximal SVC. Enteric tube is overlying the plane of the stomac h. The trachea is midline. The cardiac silhouette and mediastinum are within normal limits. Improved right medial lung field airspace opacity. Trace left pleural effusion and/or atelectasis. No pneumothorax.
[2025-04-06] MEDS: dilTIAZem 25 MG/5 ML VIAL IV ONE (20:49)
[2025-04-06] MEDS: HYDROmorphone HCL 2 MG/ML VL/or syr IV ONE (23:00)
[2025-04-07] VITALS (67 sets, daily range): BP systolic 120–176; BP diastolic 61–116; PULSE 91–129; RESP 15–28; TEMP 96.4–98.7; O2SAT 85–98
[2025-04-07] MEDS: LABETALOL HCL 20 MG/4 ML VL IV ONE (00:23)
[2025-04-07] MEDS: LORazepam 2MG/ML-1ML VIAL IV ONE (03:17)
[2025-04-07] MEDS: METOPROLOL TARTRATE 1MG/1ML-5ML VIAL IV ONE (04:23)
[2025-04-07 05:22] LABS: Hematocrit 37.7 % (41.0-53.0); Hemoglobin 12.6 g/dL (13.5-17.5); Mean Corpuscular Hemoglobin 31.3 pg (28.0-32.0); Mean Corpuscular Volume 93.8 fL (80.0-100.0); Nucleated Red Blood Cells % 0.1 %
[2025-04-07 05:34] LABS: INR 1.03 (0.9-1.15); Partial Thromboplastin Time 32.8 SEC (24.5-34.5); Prothrombin Time 10.9 sec (9.3-11.8)
[2025-04-07 05:46] LABS: Alanine Aminotransferase 13 U/L (7-40); Albumin 4.4 g/dL (3.2-4.8); Anion Gap 10 (5-15); BUN/Creatinine Ratio 7.0 (10.0-20.0); Bilirubin, Total 0.9 mg/dL (0.2-1.0); Calcium 9.3 mg/dL (8.7-10.4); Carbon Dioxide 26 mmol/L (20-31); Chloride 106 mmol/L (98-107); Sodium 142 mmol/L (136-145); Total Protein 6.6 g/dL (5.7-8.2)
[2025-04-07 05:49] LABS: Alkaline Phosphatase 45 U/L (46-116); Blood Urea Nitrogen 9 mg/dL (9-23); Glucose 128 mg/dL (74-106); Potassium 3.4 mmol/L (3.5-5.1)
[2025-04-07 06:11] LABS: Lipase 81 U/L (12-53)
[2025-04-07] MEDS: LABETALOL HCL 20 MG/4 ML VL IV PRN (09:49)
[2025-04-07] MEDS: PANTOPRAZOLE 40 MG/10 ML VIAL INJ IV SCH (10:24)
--- NOTE | 2025-04-07 12:09 | DVHPN2 ---
Progress Note Date Seen: Apr 07, 2025 Medical Necessity Reason Pt with a Central, PICC or Fol: No Objective vital signs Vital Sign Date Time Temp Pulse Resp B/P (MAP) Pulse Ox O2 Delivery O2 Flow Rate FiO2 04/07/25 11:43 104 176/98 04/07/25 11:00 20 95 04/07/25 10:00 Nasal Cannula* 4 36 04/07/25 08:00 98.3 98.3 Total Intake and Output 04/06/25 04/06/25 04/07/25 15:00 23:00 07:00 Intake Total 1520 ml 935 ml 1262.5 ml Output Total 1000 ml 1275 ml Balance 1520 ml -65 ml -12.5 ml medications Current Medications Medications Dose Ordered Sig/Yunior Route Start Time Stop Time Status Last Admin Dose Admin Ondansetron HCl 4 mg Q4HP PRN IV 04/05/25 10:15 Docusate Sodium 100 mg BIDPRN PRN PO 04/05/25 10:15 Morphine Sulfate 4 mg Q3HPRN PRN IV 04/05/25 10:15 04/06/25 21:41 4 MG Nitroglycerin 0.4 mg Q5MINP PRN SL 04/05/25 10:15 Piperacillin Sod/ Tazobactam Sod 100 ml @ 25 mls/hr Q8H IV 04/05/25 20:00 04/07/25 11:20 25 MLS/HR Nicardipine/ Sodium Chloride 200 ml @ 50 mls/hr Q4H IV 04/05/25 12:45 04/07/25 02:35 50 MLS/HR Sodium Chloride 1,000 ml @ 150 mls/hr Q6H40M IV 04/06/25 13:30 04/07/25 02:50 150 MLS/HR Pantoprazole Sodium 40 mg DAILY IV 04/07/25 10:00 04/07/25 10:24 40 MG Labetalol HCl 10 mg Q2HPRN PRN IV 04/07/25 05:45 04/07/25 11:43 10 MG laboratory and microbiology Laboratory Tests 04/07/25 03:52 Test 04/07/25 03:52 Range/Units Serum Glucose 128 H 74-106 mg/dL Problem List/Assessment/Plan Problem List/Assessment/Plan 04/07/25 patient feels much better, abdomen is less tender and less distended, amylase decreasing:clinically improved, will not need operation. he is very uncomfortable with the ngt and as his bowel is functioning i feel it is reasonable to dc the ngt, keep npo Plan discussed with: Patient AV ST MD Apr 07, 2025 12:09
--- NOTE | 2025-04-07 14:39 | DVHPN2 ---
Progress Note Date Seen: Apr 07, 2025 Medical Necessity Reason Pt with a Central, PICC or Fol: No Subjective Patient reports: No new complaints Review of Systems: HEENT:Normal, CVS:Normal, RESPIRATORY:Normal, GI:Normal, :Normal, MSK:Normal, NEURO:Normal Objective vital signs Vital Sign Date Time Temp Pulse Resp B/P (MAP) Pulse Ox O2 Delivery O2 Flow Rate FiO2 04/07/25 12:43 105 146/90 04/07/25 12:15 22 95 04/07/25 12:01 98.1 98.1 04/07/25 12:00 Nasal Cannula* 4 36 Total Intake and Output 04/06/25 04/06/25 04/07/25 15:00 23:00 07:00 Intake Total 1520 ml 935 ml 1262.5 ml Output Total 1000 ml 1275 ml Balance 1520 ml -65 ml -12.5 ml medications Current Medications Medications Dose Ordered Sig/Yunior Route Start Time Stop Time Status Last Admin Dose Admin Ondansetron HCl 4 mg Q4HP PRN IV 04/05/25 10:15 Docusate Sodium 100 mg BIDPRN PRN PO 04/05/25 10:15 Morphine Sulfate 4 mg Q3HPRN PRN IV 04/05/25 10:15 04/06/25 21:41 4 MG Nitroglycerin 0.4 mg Q5MINP PRN SL 04/05/25 10:15 Piperacillin Sod/ Tazobactam Sod 100 ml @ 25 mls/hr Q8H IV 04/05/25 20:00 04/07/25 11:20 25 MLS/HR Nicardipine/ Sodium Chloride 200 ml @ 50 mls/hr Q4H IV 04/05/25 12:45 04/07/25 02:35 50 MLS/HR Sodium Chloride 1,000 ml @ 150 mls/hr Q6H40M IV 04/06/25 13:30 04/07/25 02:50 150 MLS/HR Pantoprazole Sodium 40 mg DAILY IV 04/07/25 10:00 04/07/25 10:24 40 MG Labetalol HCl 10 mg Q2HPRN PRN IV 04/07/25 05:45 04/07/25 11:43 10 MG Lorazepam 1 mg Q6HP PRN IV 04/07/25 14:15 UNV Examination: GENERAL:Normal, HEENT:Normal, NECK:Normal, LUNGS:Normal, CVS:Normal, ABDOMEN:Normal, ABDOMEN:Abnormal (distension), MSK:Normal, SKIN:Normal, NEURO:Normal, :Normal laboratory and microbiology Laboratory Tests 04/07/25 03:52 Test 04/07/25 03:52 Range/Units Serum Glucose 128 H 74-106 mg/dL Microbiology Date/Time Source Procedure Growth Status 04/05/25 10:30 Blood Blood Culture - Preliminary NO GROWTH AFTER 48 HOURS OF INCUBATION. Resulted Problem List/Assessment/Plan Problem List/Assessment/Plan #1 acute pancreatitis/necrosis in tail: ivf, pain meds, npo #2 hypertensive emergency: on labetalol prn #3 essential tremor #4 bph Plan discussed with: Patient My Orders My Orders Orders - NAZARIO HARPER MD Procedure Category Date Status Time Lorazepam 2mg/Ml Inj PHA 04/07/25 Logged (Ativan Inj) 14:15 0.9% Ns 1000 Ml PHA 04/07/25 Verified 14:45 Transfer Orders XFER 04/07/25 Verified 14:34 Potassium Chl Willie PHA 04/07/25 Verified KCL 14:45 Basic Metabolic Panel LAB 04/08/25 Verified 06:00 Complete Blood Count LAB 04/08/25 Verified 06:00 Magnesium LAB 04/08/25 Verified 05:00 Date of Service: Apr 07, 2025 Billing Provider: NAZARIO HARPER MD Common Visit Codes: [id number] INP/OBS CARE(HIGH) NAZARIO HARPER MD Apr 07, 2025 14:39
[2025-04-07] MEDS: LORazepam 2MG/ML-1ML VIAL IV PRN (15:21)
[2025-04-07] MEDS: SODIUM CHLORIDE 0.9% 1,000 ML IV SCH (15:23)
[2025-04-07] MEDS: POTASSIUM CHLORIDE 20 MEQ, LIDOCAINE 1% (LOCAL ANESTH.) 2 ML in SODIUM CHL 0.9% 100 ML IV ONE (17:34)
[2025-04-07] MEDS ORDERED: LISI10TA34 PO (18:30)
[2025-04-07] MEDS ORDERED: TAMS-35 PO (18:30)
[2025-04-07] MEDS ORDERED: CETI10CA PO (18:30)
[2025-04-07] MEDS ORDERED: DULO1CAP4 PO (18:30)
--- NOTE | 2025-04-07 21:09 | DVHPN2 ---
Progress Note - Dictate Date Seen: Apr 07, 2025 Medical Necessity Reason Pt with a Central, PICC or Fol: No Subjective Patient has been downgraded to the floor patient feels much better, abdomen is less tender and less distended, amylase decreasing: Patient states his abdominal pain has improved Patient does have abdominal distention vital signs Vital Sign Date Time Temp Pulse Resp B/P (MAP) Pulse Ox O2 Delivery O2 Flow Rate FiO2 04/07/25 20:59 101 162/97 04/07/25 20:00 Room Air* 0 21 04/07/25 17:10 96.4 18 95 96.4 Total Intake and Output 04/06/25 04/06/25 04/07/25 15:00 23:00 07:00 Intake Total 1520 ml 935 ml 1262.5 ml Output Total 1000 ml 1275 ml Balance 1520 ml -65 ml -12.5 ml medications Current Medications Medications Dose Ordered Sig/Yunior Route Start Time Stop Time Status Last Admin Dose Admin Ondansetron HCl 4 mg Q4HP PRN IV 04/05/25 10:15 Docusate Sodium 100 mg BIDPRN PRN PO 04/05/25 10:15 Morphine Sulfate 4 mg Q3HPRN PRN IV 04/05/25 10:15 04/06/25 21:41 4 MG Nitroglycerin 0.4 mg Q5MINP PRN SL 04/05/25 10:15 Piperacillin Sod/ Tazobactam Sod 100 ml @ 25 mls/hr Q8H IV 04/05/25 20:00 04/07/25 19:58 25 MLS/HR Pantoprazole Sodium 40 mg DAILY IV 04/07/25 10:00 04/07/25 10:24 40 MG Labetalol HCl 10 mg Q2HPRN PRN IV 04/07/25 05:45 04/07/25 20:59 10 MG Lorazepam 1 mg Q6HP PRN IV 04/07/25 14:15 04/07/25 15:21 1 MG Sodium Chloride 1,000 ml @ 125 mls/hr Q8H IV 04/07/25 14:45 04/07/25 15:23 125 MLS/HR objective General Appearance: Alert, Oriented X3, Cooperative, no distress HEENT: Atraumatic, PERRLA, EOMI, Mucous membr. moist/pink Respiratory: Clear to auscultation, Normal air movement Cardiovascular: Regular rate, Normal S1, Normal S2, No murmurs Abdominal: Normal bowel sounds, Soft, No hepatospenomegaly, No masses, abdominal distention with hypoactive bowel sounds Extremities: No clubbing, No cyanosis, No edema, Normal pulses, No tenderness/swelling Skin: No rashes, No breakdown, No significant lesion Neuro: Normal gait, Normal speech, Strength at 5/5 X4 ext, Normal tone, Sensation intact, Cranial nerves 3-12 NL Psych/Mental Status: Mental status NL, Mood NL laboratory and microbiology Laboratory Tests 04/07/25 03:52 Test 04/07/25 03:52 Range/Units Serum Glucose 128 H 74-106 mg/dL Problems(with codes): (1) Intractable abdominal pain (2) Ileus, unspecified (3) Acute necrotizing pancreatitis Prognosis Plan Patient was uncomfortable with the NG tube, NG tube was discontinued; NG tube output was about 800 mL No bowel movement recorded NPO IV fluid hydration IV Clinimix at 42 mL/hour Monitor labs Consider repeat imaging in 48-72 hours Plan discussed with: Patient MIKI YEAGER MD Apr 07, 2025 21:09
[2025-04-07] MEDS ORDERED: DEXTROSE (50%) 50ML SYRG IV SCH (22:15)
[2025-04-07] MEDS ORDERED: CLINIMIX PER PHARMACY 0 ML IV SCH (22:15)
[2025-04-07] MEDS: AMINO ACID INFUSION IN D5W 1,000 ML IV SCH (22:32)
[2025-04-08] VITALS (9 sets, daily range): BP systolic 105–160; BP diastolic 78–118; PULSE 17–105; RESP 16–18; TEMP 98–98.8; O2SAT 93–98
[2025-04-08] MEDS: InsuLIN REG 1unit/0.01ml Soln (100units/ml) SC SCH
[2025-04-08] MEDS: ACCU-CHEK COMFORT CURVE STRIP VI SCH (00:21)
[2025-04-08 06:26] LABS: Hematocrit 40.4 % (41.0-53.0); Hemoglobin 13.3 g/dL (13.5-17.5); Mean Corpuscular Hemoglobin 31.4 pg (28.0-32.0); Mean Corpuscular Volume 95.0 fL (80.0-100.0); Nucleated Red Blood Cells % 0.0 %
[2025-04-08 06:39] LABS: Alanine Aminotransferase 17 U/L (7-40); Albumin 4.7 g/dL (3.2-4.8); Anion Gap 9 (5-15); BUN/Creatinine Ratio 5.3 (10.0-20.0); Calcium 9.7 mg/dL (8.7-10.4); Carbon Dioxide 28 mmol/L (20-31); Chloride 105 mmol/L (98-107); Magnesium 2.1 mg/dL (1.6-2.6); Potassium 3.9 mmol/L (3.5-5.1); Sodium 142 mmol/L (136-145); Total Protein 7.0 g/dL (5.7-8.2)
[2025-04-08 06:41] LABS: Alkaline Phosphatase 40 U/L (46-116); Bilirubin, Total 0.7 mg/dL (0.2-1.0); Blood Urea Nitrogen 6 mg/dL (9-23); Glucose 126 mg/dL (74-106)
--- NOTE | 2025-04-08 12:47 | DVHPN2 ---
Progress Note Date Seen: Apr 08, 2025 Medical Necessity Reason Pt with a Central, PICC or Fol: No Objective vital signs Vital Sign Date Time Temp Pulse Resp B/P (MAP) Pulse Ox O2 Delivery O2 Flow Rate FiO2 04/08/25 09:10 98.3 100 17 147/103 (118) 95 98.3 04/07/25 20:00 Room Air* 0 21 Total Intake and Output 04/07/25 04/07/25 04/08/25 15:00 23:00 07:00 Intake Total 125 ml 125 ml 448.5 ml Output Total 515 ml 425 ml Balance -390 ml -300 ml 448.5 ml medications Current Medications Medications Dose Ordered Sig/Yunior Route Start Time Stop Time Status Last Admin Dose Admin Ondansetron HCl 4 mg Q4HP PRN IV 04/05/25 10:15 Docusate Sodium 100 mg BIDPRN PRN PO 04/05/25 10:15 Morphine Sulfate 4 mg Q3HPRN PRN IV 04/05/25 10:15 04/06/25 21:41 4 MG Nitroglycerin 0.4 mg Q5MINP PRN SL 04/05/25 10:15 Piperacillin Sod/ Tazobactam Sod 100 ml @ 25 mls/hr Q8H IV 04/05/25 20:00 04/08/25 12:31 25 MLS/HR Pantoprazole Sodium 40 mg DAILY IV 04/07/25 10:00 04/08/25 10:08 40 MG Labetalol HCl 10 mg Q2HPRN PRN IV 04/07/25 05:45 04/07/25 20:59 10 MG Lorazepam 1 mg Q6HP PRN IV 04/07/25 14:15 04/07/25 15:21 1 MG Sodium Chloride 1,000 ml @ 125 mls/hr Q8H IV 04/07/25 14:45 04/08/25 12:38 125 MLS/HR Amino Acids 0 ml @ 0 mls/hr PER PHARMACY IV 04/07/25 22:15 Amino Acids 1,000 ml @ 41 mls/hr DAILY@2200 IV 04/07/25 22:30 04/07/25 22:32 41 MLS/HR Diagnostic Test (Pha) 1 strip Q6HR 04/08/25 00:00 04/08/25 12:28 1 STRIP Insulin Human Regular FOLLOW SLIDING SCALE Q6HR SC 04/08/25 00:00 Dextrose 50 ml UD IV 04/07/25 22:15 laboratory and microbiology Laboratory Tests 04/08/25 05:10 Test 04/08/25 05:10 Range/Units Serum Glucose 126 H 74-106 mg/dL Problem List/Assessment/Plan Problem List/Assessment/Plan 04/07/25 patient feels much better, abdomen is less tender and less distended, amylase decreasing:clinically improved, will not need operation. he is very uncomfortable with the ngt and as his bowel is functioning i feel it is reasonable to dc the ngt, keep npo 04/08/25 feels much better, abdomen non distended, non tender, will sign off as there is no need for surgical intervention, please recall if needed Plan discussed with: Patient AV ST MD Apr 08, 2025 12:47
--- NOTE | 2025-04-08 13:29 | DVHINCON2 ---
Date of service: Apr 08, 2025 History of Present Illness 44-year-old male with a history of chronic kidney disease admitted secondary to three day history of epigastric abdominal pain associated with nausea. Patient denies any fevers or chills. Patient currently denies any abdominal pain. Past Medical History Chronic kidney disease Past Surgical History None Family History: Arthritis MOTHER Family History Noncontributory Social History Denies alcohol, tobacco, IV drug use Allergies: Coded Allergies: Bupropion (Verified Allergy, Intermediate, EDEMA/RASHES, 04/05/25) Home Meds Reported Medications Lisinopril (Lisinopril) 10 Mg Tab, 10 MG PO DAILY for 30 Days, MG 04/07/25 Cetirizine Hcl (Zyrtec Allergy) 10 Mg Cap, 10 MG PO DAILY, CAP 04/07/25 Duloxetine HCl (Duloxetine HCl) 20 Mg Cap, 10 MG PO DAILY, CAP 04/07/25 Tamsulosin Hcl (Flomax) 0.4 Mg Cap, 1 CAP PO DAILY, #30 CAP 11 Refills 04/07/25 Current Medications Current Medications Medications (Trade) Dose Ordered Sig/Yunior Route PRN Reason Start Time Stop Time Status Last Admin Lorazepam (Ativan Inj) 1 mg Q6HP PRN IV ANXIETY 04/07/25 14:15 04/07/25 15:21 Sodium Chloride 1,000 ml @ 125 mls/hr Q8H IV 04/07/25 14:45 04/08/25 12:38 Amino Acids 0 ml @ 0 mls/hr PER PHARMACY IV 04/07/25 22:15 Amino Acids 1,000 ml @ 41 mls/hr DAILY@2200 IV 04/07/25 22:30 04/07/25 22:32 Diagnostic Test (Pha) (Accu-Chek Comfort Curve T) 1 strip Q6HR 04/08/25 00:00 04/08/25 12:28 Insulin Human Regular (InsuLIN R) FOLLOW SLIDING SCALE Q6HR SC 04/08/25 00:00 Dextrose 50 ml UD IV 04/07/25 22:15 Vital Signs Vital Signs Date Time Temp Pulse Resp B/P (MAP) Pulse Ox O2 Delivery O2 Flow Rate FiO2 04/08/25 09:10 98.3 100 17 147/103 (118) 95 98.3 04/07/25 20:00 Room Air* 0 21 Physical Exam GEN: Age-appropriate male in no acute distress. Alert. HEENT: Normocephalic atraumatic. Moist mucous membranes. Anicteric sclerae. CV: RRR Respiratory: CTAB ABD: Soft. Nontender nondistended. CT of the abdomen and pelvis performed from an outside facility showed findings consistent with acute pancreatitis. Abdominal ultrasound: Negative for gallstones Labs/Diagnostic Data Labs Test 04/08/25 05:10 04/07/25 03:52 04/05/25 06:54 04/05/25 06:30 Range/Units White Blood Count 10.5 4.4-10.8 10^3/uL Red Blood Count 4.25 L 4.5-5.90 10^6/uL Hemoglobin 13.3 L 13.5-17.5 g/dL Hematocrit 40.4 L 41.0-53.0 % Mean Corpuscular Volume 95.0 80.0-100.0 fL Mean Corpuscular Hemoglobin 31.4 28.0-32.0 pg Mean Corpuscular Hemoglobin Concent 33.0 32.0-36.0 g/dL Red Cell Distribution Width 16.3 H 11.8-14.3 % Platelet Count 343 140-450 10^3/uL Mean Platelet Volume 8.5 6.9-10.8 fL Neutrophils (%) (Auto) 72.7 37.0-80.0 % Lymphocytes (%) (Auto) 13.3 10.0-50.0 % Monocytes (%) (Auto) 13.3 H 0.0-12.0 % Eosinophils (%) (Auto) 0.5 0.0-7.0 % Basophils (%) (Auto) 0.2 0.0-2.0 % Neutrophils # (Auto) 7.6 1.6-8.6 10 ^3/uL Lymphocytes # (Auto) 1.4 0.4-5.4 10 ^3/uL Monocytes # (Auto) 1.4 H 0-1.3 10 ^3/uL Eosinophils # (Auto) 0.1 0-0.8 10 ^3/uL Basophils # (Auto) 0 0-0.2 10 ^3/uL Nucleated Red Blood Cells 0.0 % Sodium Level 142 136-145 mmol/L Potassium Level 3.9 3.5-5.1 mmol/L Chloride Level 105 98-107 mmol/L Carbon Dioxide Level 28 20-31 mmol/L Anion Gap 9 5-15 Blood Urea Nitrogen 6 L 9-23 mg/dL Creatinine 1.14 0.700-1.30 mg/dL Glomerular Filtration Rate Calc 80 >90 mL/min BUN/Creatinine Ratio 5.3 L 10.0-20.0 Serum Glucose 126 H 74-106 mg/dL Calcium Level 9.7 8.7-10.4 mg/dL Phosphorus Level 1.7 L 2.4-5.1 mg/dL Magnesium Level 2.1 1.6-2.6 mg/dL Total Bilirubin 0.7 0.2-1.0 mg/dL Aspartate Amino Transferase (AST) 28 13-40 U/L Alanine Aminotransferase (ALT) 17 7-40 U/L Alkaline Phosphatase 40 L 46-116 U/L Total Protein 7.0 5.7-8.2 g/dL Albumin 4.7 3.2-4.8 g/dL Prothrombin Time 10.9 9.3-11.8 sec Prothrombin Time INR 1.03 0.9-1.15 Activated Partial Thromboplast Time 32.8 24.5-34.5 SEC Lipase 81 H 12-53 U/L Urine Color Light-orange Yellow Urine Clarity Clear Clear Urine pH 6.0 5.0-9.0 Urine Specific [place] > 1.050 H 1.001-1.035 Urine Protein 2+ H Negative Urine Ketones 1+ H Negative Urine Blood 1+ H Negative /uL Urine Nitrite Negative Negative Urine Bilirubin Negative Negative Urine Urobilinogen Normal Negative mg/dL Urine Leukocyte Esterase Negative Negative /uL Urine RBC 8 0 - 3 /hpf Urine Microscopic WBC 2 0-3 /HPF Urine Squamous Epithelial Cells None seen <5 /hpf Urine Amorphous Crystals Few None Seen /hpf Urine Bacteria None seen None Seen /hpf Urine Glucose Normal Normal mg/dL Triglycerides Level 338 H < 150 mg/dL Microbiology Date/Time Source Procedure Growth Status 04/05/25 10:30 Blood Blood Culture - Preliminary NO GROWTH AFTER 72 HOURS OF INCUBATION. Resulted Assessment 1. Acute pancreatitis resolving Plan/Recommendation 1. Clear liquid diet. If the patient is able to tolerate clear liquid diet, he can be discharged home with liquid diet with slow advancement of diet over the next several days. Plan discussed with: Patient KITTY VENCES MD Apr 08, 2025 13:29
[2025-04-08] MEDS: SODIUM CHLORIDE 0.9% 1,000 ML IV SCH (14:19)
--- NOTE | 2025-04-08 16:01 | DVHPN2 ---
Progress Note - Dictate Date Seen: Apr 08, 2025 Medical Necessity Reason Pt with a Central, PICC or Fol: No Subjective Patient has been downgraded to the floor patient feels much better, abdomen is less tender and less distended, amylase decreasing: Patient states his abdominal pain has improved Patient does have mild abdominal distention Patient stated he had a bowel movement but no bowel movement is recorded vital signs Vital Sign Date Time Temp Pulse Resp B/P (MAP) Pulse Ox O2 Delivery O2 Flow Rate FiO2 04/08/25 13:00 98.1 93 16 105/78 (87) 97 98.1 04/07/25 20:00 Room Air* 0 21 Total Intake and Output 04/07/25 04/07/25 04/08/25 15:00 23:00 07:00 Intake Total 125 ml 125 ml 448.5 ml Output Total 515 ml 425 ml Balance -390 ml -300 ml 448.5 ml medications Current Medications Medications Dose Ordered Sig/Yunior Route Start Time Stop Time Status Last Admin Dose Admin Ondansetron HCl 4 mg Q4HP PRN IV 04/05/25 10:15 Docusate Sodium 100 mg BIDPRN PRN PO 04/05/25 10:15 Morphine Sulfate 4 mg Q3HPRN PRN IV 04/05/25 10:15 04/06/25 21:41 4 MG Nitroglycerin 0.4 mg Q5MINP PRN SL 04/05/25 10:15 Piperacillin Sod/ Tazobactam Sod 100 ml @ 25 mls/hr Q8H IV 04/05/25 20:00 04/08/25 12:31 25 MLS/HR Pantoprazole Sodium 40 mg DAILY IV 04/07/25 10:00 04/08/25 10:08 40 MG Labetalol HCl 10 mg Q2HPRN PRN IV 04/07/25 05:45 04/07/25 20:59 10 MG Lorazepam 1 mg Q6HP PRN IV 04/07/25 14:15 04/07/25 15:21 1 MG Amino Acids 0 ml @ 0 mls/hr PER PHARMACY IV 04/07/25 22:15 Amino Acids 1,000 ml @ 41 mls/hr DAILY@2200 IV 04/07/25 22:30 04/07/25 22:32 41 MLS/HR Diagnostic Test (Pha) 1 strip Q6HR 04/08/25 00:00 04/08/25 12:28 1 STRIP Insulin Human Regular FOLLOW SLIDING SCALE Q6HR SC 04/08/25 00:00 Dextrose 50 ml UD IV 04/07/25 22:15 Sodium Chloride 1,000 ml @ 100 mls/hr Q10H IV 04/08/25 13:30 04/08/25 14:19 100 MLS/HR Acetaminophen 650 mg Q6HP PRN PO 04/08/25 15:45 objective General Appearance: Alert, Oriented X3, Cooperative, no distress HEENT: Atraumatic, PERRLA, EOMI, Mucous membr. moist/pink Respiratory: Clear to auscultation, Normal air movement Cardiovascular: Regular rate, Normal S1, Normal S2, No murmurs Abdominal: Normal bowel sounds, Soft, No hepatospenomegaly, No masses, abdominal distention with hypoactive bowel sounds Extremities: No clubbing, No cyanosis, No edema, Normal pulses, No tenderness/swelling Skin: No rashes, No breakdown, No significant lesion Neuro: Normal gait, Normal speech, Strength at 5/5 X4 ext, Normal tone, Sensation intact, Cranial nerves 3-12 NL Psych/Mental Status: Mental status NL, Mood NL laboratory and microbiology Laboratory Tests 04/08/25 05:10 Test 04/08/25 05:10 Range/Units Serum Glucose 126 H 74-106 mg/dL Problems(with codes): (1) Ileus, unspecified (2) Intractable abdominal pain (3) Acute necrotizing pancreatitis Prognosis Plan Continue to monitor labs IV fluid hydration IV antibiotics Patient has been started on ice chips and water and if he tolerates that we will go to clear liquid diet Repeat imaging of pancreas in 48-72 hours Plan discussed with: Patient, Other (Nurse) MIKI YEAGER MD Apr 08, 2025 16:01
[2025-04-08] MEDS: ACETAMINOPHEN 325 MG TAB PO PRN (16:53)
[2025-04-08] MEDS: POTASSIUM PHOSPHATE 22 MEQ in SODIUM CHL 0.9% 100 ML IV ONE (17:31)
--- NOTE | 2025-04-08 18:38 | DVHPN2 ---
Subjective Minimal pain today Reviewed: H&P, Labs Changes from previous H/P or p: No Changes Eyes: No Pain, No Vision change, No Conjunctivae inflammation, No Eyelid inflammation, No Other, No Redness ENT: No Ear pain, No Ear discharge, No Nose pain, No Nose discharge, No Nose congestion, No Mouth pain, No Mouth swelling, No Throat pain, No Throat swelling, No Other Cardiovascular: No Chest Pain, No Palpitations, No Orthopnea, No Paroxysmal Noc. Dyspnea, No Edema, No Lt Headedness, No Other Respiratory: No Cough, No Dry, No Shortness of breath, No SOB with excertion, No Wheezing, No Hemoptysis, No Pleuritic Pain, No Sputum, No Other Gastrointestinal: Nausea, Vomiting, Abdominal Pain; No Diarrhea, No Constipation, No Melena, No Hematochezia, No Other Genitourinary: No Dysuria, No Frequency, No Incontinence, No Hematuria, No Retention, No Other Musculoskeletal: No other, No neck pain, No shoulder pain, No arm pain, No back pain, No hand pain, No leg pain, No foot pain Skin: No Rash, No Lesions, No Jaundice, No Bruising, No Other Objective Vitals Vital Signs Date Time Temp Pulse Resp B/P (MAP) Pulse Ox O2 Delivery O2 Flow Rate FiO2 04/08/25 17:47 95 160/118 04/08/25 16:47 98.0 16 93 98.0 04/07/25 20:00 Room Air* 0 21 Intake/Output Intake and Output 04/08/25 07:00 Intake Total 698.5 ml Output Total 940 ml Balance -241.5 ml IV Total 698.5 ml Output Urine Total 900 ml Gastric Drainage Total 40 ml General Appearance: Alert, Oriented X3 HEENT: Atraumatic Lungs: Clear to auscultation Cardiovascular: Regular rate, Normal S1, Normal S2 Abdomen: Normal bowel sounds Medications Current Medications Medications Dose Ordered Sig/Yunior Route Start Time Stop Time Status Last Admin Dose Admin Ondansetron HCl 4 mg Q4HP PRN IV 04/05/25 10:15 Docusate Sodium 100 mg BIDPRN PRN PO 04/05/25 10:15 Morphine Sulfate 4 mg Q3HPRN PRN IV 04/05/25 10:15 04/06/25 21:41 4 MG Nitroglycerin 0.4 mg Q5MINP PRN SL 04/05/25 10:15 Piperacillin Sod/ Tazobactam Sod 100 ml @ 25 mls/hr Q8H IV 04/05/25 20:00 04/08/25 12:31 25 MLS/HR Pantoprazole Sodium 40 mg DAILY IV 04/07/25 10:00 04/08/25 10:08 40 MG Labetalol HCl 10 mg Q2HPRN PRN IV 04/07/25 05:45 04/08/25 17:47 10 MG Lorazepam 1 mg Q6HP PRN IV 04/07/25 14:15 04/07/25 15:21 1 MG Amino Acids 0 ml @ 0 mls/hr PER PHARMACY IV 04/07/25 22:15 Amino Acids 1,000 ml @ 41 mls/hr DAILY@2200 IV 04/07/25 22:30 04/07/25 22:32 41 MLS/HR Diagnostic Test (Pha) 1 strip Q6HR 04/08/25 00:00 04/08/25 17:24 1 STRIP Insulin Human Regular FOLLOW SLIDING SCALE Q6HR SC 04/08/25 00:00 Dextrose 50 ml UD IV 04/07/25 22:15 Sodium Chloride 1,000 ml @ 100 mls/hr Q10H IV 04/08/25 13:30 04/08/25 14:19 100 MLS/HR Acetaminophen 650 mg Q6HP PRN PO 04/08/25 15:45 04/08/25 16:53 650 MG Laboratory Results Laboratory Tests 04/08/25 05:10 Chemistry Test 04/08/25 05:10 Albumin 4.7 g/dL (3.2-4.8) Calcium Level 9.7 mg/dL (8.7-10.4) Magnesium Level 2.1 mg/dL (1.6-2.6) Phosphorus Level 1.7 mg/dL (2.4-5.1) L Total Protein 7.0 g/dL (5.7-8.2) LFT Test 04/08/25 05:10 Alanine Aminotransferase (ALT) 17 U/L (7-40) Alkaline Phosphatase 40 U/L (46-116) L Aspartate Amino Transferase (AST) 28 U/L (13-40) Total Bilirubin 0.7 mg/dL (0.2-1.0) Urinalysis Test 04/05/25 06:54 Urine Color Light-orange (Yellow) Urine Clarity Clear (Clear) Urine pH 6.0 (5.0-9.0) Urine Specific [place] > 1.050 (1.001-1.035) Urine Protein 2+ (Negative) H Urine Ketones 1+ (Negative) H Urine Blood 1+ /uL (Negative) H Urine Nitrite Negative (Negative) Urine Bilirubin Negative (Negative) Urine Urobilinogen Normal mg/dL (Negative) Urine Leukocyte Esterase Negative /uL (Negative) Urine RBC 8 /hpf (0 - 3) Urine Microscopic WBC 2 /HPF (0-3) Urine Squamous Epithelial Cells None seen /hpf (<5) Urine Amorphous Crystals Few /hpf (None Seen) Urine Bacteria None seen /hpf (None Seen) Urine Glucose Normal mg/dL (Normal) Microbiology Microbiology Date/Time Source Procedure Growth Status 04/05/25 10:30 Blood Blood Culture - Preliminary NO GROWTH AFTER 72 HOURS OF INCUBATION. Resulted Assessment/Plan Assessment/Plan #1 acute pancreatitis/necrosis in tail: Advance diet pain control #2 hypertensive emergency: on labetalol prn #3 essential tremor #4 bph Plan discussed with: Patient My Orders Orders - KARLEY SOW MD Procedure Category Date Status Time Acetaminophen Tablet PHA 04/08/25 In Process (Tylenol Tablet) 15:45 Date of Service: Apr 08, 2025 Billing Provider: KARLEY SOW MD Common Visit Codes: [id number] INP/OBS CARE(HIGH) KARLEY SOW MD Apr 08, 2025 18:38
[2025-04-09] VITALS (9 sets, daily range): BP systolic 132–172; BP diastolic 94–121; PULSE 18–105; RESP 18–22; TEMP 98–98.5; O2SAT 95–99
[2025-04-09 07:12] LABS: Hematocrit 39.7 % (41.0-53.0); Hemoglobin 13.5 g/dL (13.5-17.5); Mean Corpuscular Hemoglobin 31.9 pg (28.0-32.0); Mean Corpuscular Volume 93.5 fL (80.0-100.0); Nucleated Red Blood Cells % 0.1 %
[2025-04-09 07:36] LABS: Albumin 4.5 g/dL (3.2-4.8); Anion Gap 9 (5-15); BUN/Creatinine Ratio 8.8 (10.0-20.0); Bilirubin, Total 0.6 mg/dL (0.2-1.0); Blood Urea Nitrogen 10 mg/dL (9-23); Calcium 10.2 mg/dL (8.7-10.4); Carbon Dioxide 28 mmol/L (20-31); Chloride 105 mmol/L (98-107); Magnesium 2.2 mg/dL (1.6-2.6); Sodium 142 mmol/L (136-145); Total Protein 6.9 g/dL (5.7-8.2)
[2025-04-09 07:38] LABS: Alanine Aminotransferase 47 U/L (7-40); Alkaline Phosphatase 41 U/L (46-116); Glucose 115 mg/dL (74-106); Potassium 3.3 mmol/L (3.5-5.1)
[2025-04-09 09:29] LABS: Lipase 174 U/L (12-53)
--- NOTE | 2025-04-09 15:52 | DVHPN2 ---
Subjective Minimal pain today Reviewed: H&P, Labs Changes from previous H/P or p: No Changes Eyes: No Pain, No Vision change, No Conjunctivae inflammation, No Eyelid inflammation, No Other, No Redness ENT: No Ear pain, No Ear discharge, No Nose pain, No Nose discharge, No Nose congestion, No Mouth pain, No Mouth swelling, No Throat pain, No Throat swelling, No Other Cardiovascular: No Chest Pain, No Palpitations, No Orthopnea, No Paroxysmal Noc. Dyspnea, No Edema, No Lt Headedness, No Other Respiratory: No Cough, No Dry, No Shortness of breath, No SOB with excertion, No Wheezing, No Hemoptysis, No Pleuritic Pain, No Sputum, No Other Gastrointestinal: Nausea, Vomiting, Abdominal Pain; No Diarrhea, No Constipation, No Melena, No Hematochezia, No Other Genitourinary: No Dysuria, No Frequency, No Incontinence, No Hematuria, No Retention, No Other Musculoskeletal: No other, No neck pain, No shoulder pain, No arm pain, No back pain, No hand pain, No leg pain, No foot pain Skin: No Rash, No Lesions, No Jaundice, No Bruising, No Other Objective Vitals Vital Signs Date Time Temp Pulse Resp B/P (MAP) Pulse Ox O2 Delivery O2 Flow Rate FiO2 04/09/25 13:00 98.0 97 18 155/103 (120) 99 98.0 04/09/25 08:30 Room Air* 0 21 Intake/Output Intake and Output 04/09/25 07:00 Intake Total 778 ml Balance 778 ml Intake Oral 478 ml IV Total 300 ml General Appearance: Alert, Oriented X3 HEENT: Atraumatic Lungs: Clear to auscultation Cardiovascular: Regular rate, Normal S1, Normal S2 Abdomen: Normal bowel sounds Medications Current Medications Medications Dose Ordered Sig/Yunior Route Start Time Stop Time Status Last Admin Dose Admin Ondansetron HCl 4 mg Q4HP PRN IV 04/05/25 10:15 Docusate Sodium 100 mg BIDPRN PRN PO 04/05/25 10:15 Morphine Sulfate 4 mg Q3HPRN PRN IV 04/05/25 10:15 04/06/25 21:41 4 MG Nitroglycerin 0.4 mg Q5MINP PRN SL 04/05/25 10:15 Piperacillin Sod/ Tazobactam Sod 100 ml @ 25 mls/hr Q8H IV 04/05/25 20:00 04/09/25 12:47 25 MLS/HR Pantoprazole Sodium 40 mg DAILY IV 04/07/25 10:00 04/09/25 10:23 40 MG Labetalol HCl 10 mg Q2HPRN PRN IV 04/07/25 05:45 04/09/25 04:17 10 MG Lorazepam 1 mg Q6HP PRN IV 04/07/25 14:15 04/09/25 12:47 1 MG Amino Acids 0 ml @ 0 mls/hr PER PHARMACY IV 04/07/25 22:15 Amino Acids 1,000 ml @ 41 mls/hr DAILY@2200 IV 04/07/25 22:30 04/08/25 20:39 41 MLS/HR Diagnostic Test (Pha) 1 strip Q6HR 04/08/25 00:00 04/09/25 12:00 1 STRIP Insulin Human Regular FOLLOW SLIDING SCALE Q6HR SC 04/08/25 00:00 Dextrose 50 ml UD IV 04/07/25 22:15 Sodium Chloride 1,000 ml @ 100 mls/hr Q10H IV 04/08/25 13:30 04/08/25 14:19 100 MLS/HR Acetaminophen 650 mg Q6HP PRN PO 04/08/25 15:45 04/08/25 16:53 650 MG Laboratory Results Laboratory Tests 04/09/25 05:45 Chemistry Test 04/09/25 05:45 Albumin 4.5 g/dL (3.2-4.8) Calcium Level 10.2 mg/dL (8.7-10.4) Magnesium Level 2.2 mg/dL (1.6-2.6) Phosphorus Level 2.8 mg/dL (2.4-5.1) Total Protein 6.9 g/dL (5.7-8.2) Lipid panel Test 04/09/25 05:45 Lipase 174 U/L (12-53) H LFT Test 04/09/25 05:45 Alanine Aminotransferase (ALT) 47 U/L (7-40) H Alkaline Phosphatase 41 U/L (46-116) L Aspartate Amino Transferase (AST) 50 U/L (13-40) H Total Bilirubin 0.6 mg/dL (0.2-1.0) Urinalysis Test 04/05/25 06:54 Urine Color Light-orange (Yellow) Urine Clarity Clear (Clear) Urine pH 6.0 (5.0-9.0) Urine Specific [place] > 1.050 (1.001-1.035) Urine Protein 2+ (Negative) H Urine Ketones 1+ (Negative) H Urine Blood 1+ /uL (Negative) H Urine Nitrite Negative (Negative) Urine Bilirubin Negative (Negative) Urine Urobilinogen Normal mg/dL (Negative) Urine Leukocyte Esterase Negative /uL (Negative) Urine RBC 8 /hpf (0 - 3) Urine Microscopic WBC 2 /HPF (0-3) Urine Squamous Epithelial Cells None seen /hpf (<5) Urine Amorphous Crystals Few /hpf (None Seen) Urine Bacteria None seen /hpf (None Seen) Urine Glucose Normal mg/dL (Normal) Microbiology Microbiology Date/Time Source Procedure Growth Status 04/05/25 10:30 Blood Blood Culture - Preliminary NO GROWTH AFTER 72 HOURS OF INCUBATION. Resulted Assessment/Plan Assessment/Plan #1 acute pancreatitis/necrosis in tail: Advance diet pain control #2 hypertensive emergency: on labetalol prn #3 essential tremor #4 bph Plan discussed with: Patient Date of Service: Apr 09, 2025 Billing Provider: KARLEY SOW MD Common Visit Codes: [id number] INP/OBS CARE(HIGH) KARLEY SOW MD Apr 09, 2025 15:52
--- NOTE | 2025-04-09 17:39 | DVHPN2 ---
Progress Note - Dictate Date Seen: Apr 09, 2025 Medical Necessity Reason Pt with a Central, PICC or Fol: No Subjective No new complaints, resting comfortably Tolerating clear liquid diet patient feels much better, abdomen is less tender and less distended, amylase decreasing: Patient states his abdominal pain has improved Patient does have mild abdominal distention Patient stated he had a bowel movement yesterday but no bowel movement is recorded vital signs Vital Sign Date Time Temp Pulse Resp B/P (MAP) Pulse Ox O2 Delivery O2 Flow Rate FiO2 04/09/25 17:00 98.0 94 18 132/94 (107) 98 98.0 04/09/25 08:30 Room Air* 0 21 Total Intake and Output 04/08/25 04/08/25 04/09/25 15:00 23:00 07:00 Intake Total 100 ml 678 ml Balance 100 ml 678 ml medications Current Medications Medications Dose Ordered Sig/Yunior Route Start Time Stop Time Status Last Admin Dose Admin Ondansetron HCl 4 mg Q4HP PRN IV 04/05/25 10:15 Docusate Sodium 100 mg BIDPRN PRN PO 04/05/25 10:15 Morphine Sulfate 4 mg Q3HPRN PRN IV 04/05/25 10:15 04/06/25 21:41 4 MG Nitroglycerin 0.4 mg Q5MINP PRN SL 04/05/25 10:15 Piperacillin Sod/ Tazobactam Sod 100 ml @ 25 mls/hr Q8H IV 04/05/25 20:00 04/09/25 12:47 25 MLS/HR Pantoprazole Sodium 40 mg DAILY IV 04/07/25 10:00 04/09/25 10:23 40 MG Labetalol HCl 10 mg Q2HPRN PRN IV 04/07/25 05:45 04/09/25 04:17 10 MG Lorazepam 1 mg Q6HP PRN IV 04/07/25 14:15 04/09/25 12:47 1 MG Amino Acids 0 ml @ 0 mls/hr PER PHARMACY IV 04/07/25 22:15 Amino Acids 1,000 ml @ 41 mls/hr DAILY@2200 IV 04/07/25 22:30 04/08/25 20:39 41 MLS/HR Diagnostic Test (Pha) 1 strip Q6HR 04/08/25 00:00 04/09/25 12:00 1 STRIP Insulin Human Regular FOLLOW SLIDING SCALE Q6HR SC 04/08/25 00:00 Dextrose 50 ml UD IV 04/07/25 22:15 Sodium Chloride 1,000 ml @ 100 mls/hr Q10H IV 04/08/25 13:30 04/08/25 14:19 100 MLS/HR Acetaminophen 650 mg Q6HP PRN PO 04/08/25 15:45 04/08/25 16:53 650 MG objective General Appearance: Alert, Oriented X3, Cooperative, no distress HEENT: Atraumatic, PERRLA, EOMI, Mucous membr. moist/pink Respiratory: Clear to auscultation, Normal air movement Cardiovascular: Regular rate, Normal S1, Normal S2, No murmurs Abdominal: Normal bowel sounds, Soft, No hepatospenomegaly, No masses, abdominal distention with hypoactive bowel sounds Extremities: No clubbing, No cyanosis, No edema, Normal pulses, No tenderness/swelling Skin: No rashes, No breakdown, No significant lesion Neuro: Normal gait, Normal speech, Strength at 5/5 X4 ext, Normal tone, Sensation intact, Cranial nerves 3-12 NL Psych/Mental Status: Mental status NL, Mood NL laboratory and microbiology Laboratory Tests 04/09/25 05:45 Test 04/09/25 05:45 Range/Units Serum Glucose 115 H 74-106 mg/dL Problems(with codes): (1) Ileus, unspecified (2) Intractable abdominal pain (3) Acute necrotizing pancreatitis Prognosis Plan Patient's lipase went up again after he was started on a clear liquid diet to 174 I will not advance his diet today and repeat his labs tomorrow If there is further rise in his lipase then me recommend repeating a CT abdomen and keeping him NPO again IV PPI, IV antibiotics Dietary Evaluation Review Comments: 2GNa Low Fat CCHO-60 diet Expected Outcomes/Goals: Gradual wt loss, controlled blood sugar Plan discussed with: Other (None) MIKI YEAGER MD Apr 09, 2025 17:39
[2025-04-09] MEDS: POTASSIUM CHL 20MEQ/100ML 100 ML IV ONE (18:49)
[2025-04-10] VITALS (9 sets, daily range): BP systolic 132–163; BP diastolic 89–110; PULSE 83–101; RESP 16–20; TEMP 97.7–98.5; O2SAT 95–99
[2025-04-10 07:44] LABS: Albumin 4.6 g/dL (3.2-4.8); Anion Gap 9 (5-15); BUN/Creatinine Ratio 10.3 (10.0-20.0); Blood Urea Nitrogen 12 mg/dL (9-23); Calcium 10.2 mg/dL (8.7-10.4); Carbon Dioxide 28 mmol/L (20-31); Chloride 103 mmol/L (98-107); Magnesium 2.0 mg/dL (1.6-2.6); Sodium 140 mmol/L (136-145); Total Protein 7.0 g/dL (5.7-8.2)
[2025-04-10 07:45] LABS: Bilirubin, Total 0.6 mg/dL (0.2-1.0)
[2025-04-10 07:46] LABS: Alanine Aminotransferase 46 U/L (7-40); Alkaline Phosphatase 35 U/L (46-116); Amylase 159 U/L (30-118); Glucose 112 mg/dL (74-106); Potassium 3.5 mmol/L (3.5-5.1)
[2025-04-10 08:27] LABS: Lipase 228 U/L (12-53)
--- NOTE | 2025-04-10 10:15 | DVHPN2 ---
Progress Note - Dictate Date Seen: Apr 10, 2025 Medical Necessity Reason Pt with a Central, PICC or Fol: No Subjective E: no major events o/n. no complaints. denies abd pain. feels much better than yesterday. vital signs Vital Sign Date Time Temp Pulse Resp B/P (MAP) Pulse Ox O2 Delivery O2 Flow Rate FiO2 04/10/25 07:31 18 98 Room Air* 0 21 04/10/25 05:56 69 135/88 04/10/25 05:00 97.9 97.9 Total Intake and Output 04/09/25 04/09/25 04/10/25 15:00 23:00 07:00 Intake Total 100 ml 100 ml Balance 100 ml 100 ml medications Current Medications Medications Dose Ordered Sig/Yunior Route Start Time Stop Time Status Last Admin Dose Admin Ondansetron HCl 4 mg Q4HP PRN IV 04/05/25 10:15 Docusate Sodium 100 mg BIDPRN PRN PO 04/05/25 10:15 Morphine Sulfate 4 mg Q3HPRN PRN IV 04/05/25 10:15 04/06/25 21:41 4 MG Nitroglycerin 0.4 mg Q5MINP PRN SL 04/05/25 10:15 Piperacillin Sod/ Tazobactam Sod 100 ml @ 25 mls/hr Q8H IV 04/05/25 20:00 04/10/25 04:07 25 MLS/HR Pantoprazole Sodium 40 mg DAILY IV 04/07/25 10:00 04/10/25 09:59 40 MG Labetalol HCl 10 mg Q2HPRN PRN IV 04/07/25 05:45 04/10/25 04:56 10 MG Lorazepam 1 mg Q6HP PRN IV 04/07/25 14:15 04/10/25 04:31 1 MG Amino Acids 0 ml @ 0 mls/hr PER PHARMACY IV 04/07/25 22:15 Amino Acids 1,000 ml @ 41 mls/hr DAILY@2200 IV 04/07/25 22:30 04/09/25 20:54 41 MLS/HR Diagnostic Test (Pha) 1 strip Q6HR 04/08/25 00:00 04/10/25 04:49 1 STRIP Insulin Human Regular FOLLOW SLIDING SCALE Q6HR SC 04/08/25 00:00 Dextrose 50 ml UD IV 04/07/25 22:15 Sodium Chloride 1,000 ml @ 100 mls/hr Q10H IV 04/08/25 13:30 04/09/25 20:25 100 MLS/HR Acetaminophen 650 mg Q6HP PRN PO 04/08/25 15:45 04/08/25 16:53 650 MG objective GEN: NAD ABD: soft. NT/ND. laboratory and microbiology Laboratory Tests 04/10/25 06:26 04/09/25 05:45 Test 04/10/25 06:26 Range/Units Serum Glucose 112 H 74-106 mg/dL Assessment/Plan A: 1. Acute pancreatitis clinically improving with with slt elevation on lipase P: 1. DC TPN 2. check labs. if lipase cont to increase, agree with CT abd/pelvis tomorrow. Dietary Evaluation Review Comments: 2GNa Low Fat CCHO-60 diet Expected Outcomes/Goals: Gradual wt loss, controlled blood sugar Plan discussed with: Patient KITTY VENCES MD Apr 10, 2025 10:15
--- NOTE | 2025-04-10 15:45 | DVHPN2 ---
Subjective Minimal pain today Reviewed: H&P, Labs Changes from previous H/P or p: No Changes Eyes: No Pain, No Vision change, No Conjunctivae inflammation, No Eyelid inflammation, No Other, No Redness ENT: No Ear pain, No Ear discharge, No Nose pain, No Nose discharge, No Nose congestion, No Mouth pain, No Mouth swelling, No Throat pain, No Throat swelling, No Other Cardiovascular: No Chest Pain, No Palpitations, No Orthopnea, No Paroxysmal Noc. Dyspnea, No Edema, No Lt Headedness, No Other Respiratory: No Cough, No Dry, No Shortness of breath, No SOB with excertion, No Wheezing, No Hemoptysis, No Pleuritic Pain, No Sputum, No Other Gastrointestinal: Nausea, Vomiting, Abdominal Pain; No Diarrhea, No Constipation, No Melena, No Hematochezia, No Other Genitourinary: No Dysuria, No Frequency, No Incontinence, No Hematuria, No Retention, No Other Musculoskeletal: No other, No neck pain, No shoulder pain, No arm pain, No back pain, No hand pain, No leg pain, No foot pain Skin: No Rash, No Lesions, No Jaundice, No Bruising, No Other Objective Vitals Vital Signs Date Time Temp Pulse Resp B/P (MAP) Pulse Ox O2 Delivery O2 Flow Rate FiO2 04/10/25 13:00 98.4 84 16 141/93 (109) 98 98.4 04/10/25 07:31 Room Air* 0 21 Intake/Output Intake and Output 04/10/25 07:00 Intake Total 200 ml Balance 200 ml IV Total 200 ml General Appearance: Alert, Oriented X3 HEENT: Atraumatic Lungs: Clear to auscultation Cardiovascular: Regular rate, Normal S1, Normal S2 Abdomen: Normal bowel sounds Medications Current Medications Medications Dose Ordered Sig/Yunoir Route Start Time Stop Time Status Last Admin Dose Admin Ondansetron HCl 4 mg Q4HP PRN IV 04/05/25 10:15 Docusate Sodium 100 mg BIDPRN PRN PO 04/05/25 10:15 Morphine Sulfate 4 mg Q3HPRN PRN IV 04/05/25 10:15 04/06/25 21:41 4 MG Nitroglycerin 0.4 mg Q5MINP PRN SL 04/05/25 10:15 Piperacillin Sod/ Tazobactam Sod 100 ml @ 25 mls/hr Q8H IV 04/05/25 20:00 04/10/25 12:12 25 MLS/HR Pantoprazole Sodium 40 mg DAILY IV 04/07/25 10:00 04/10/25 09:59 40 MG Labetalol HCl 10 mg Q2HPRN PRN IV 04/07/25 05:45 04/10/25 04:56 10 MG Lorazepam 1 mg Q6HP PRN IV 04/07/25 14:15 04/10/25 12:13 1 MG Diagnostic Test (Pha) 1 strip Q6HR 04/08/25 00:00 04/10/25 12:11 1 STRIP Insulin Human Regular FOLLOW SLIDING SCALE Q6HR SC 04/08/25 00:00 Dextrose 50 ml UD IV 04/07/25 22:15 Sodium Chloride 1,000 ml @ 100 mls/hr Q10H IV 04/08/25 13:30 04/09/25 20:25 100 MLS/HR Acetaminophen 650 mg Q6HP PRN PO 04/08/25 15:45 04/08/25 16:53 650 MG Laboratory Results Laboratory Tests 04/09/25 05:45 04/10/25 06:26 Chemistry Test 04/10/25 06:26 Albumin 4.6 g/dL (3.2-4.8) Calcium Level 10.2 mg/dL (8.7-10.4) Magnesium Level 2.0 mg/dL (1.6-2.6) Phosphorus Level 3.0 mg/dL (2.4-5.1) Total Protein 7.0 g/dL (5.7-8.2) Lipid panel Test 04/10/25 06:26 Lipase 228 U/L (12-53) H LFT Test 04/10/25 06:26 Alanine Aminotransferase (ALT) 46 U/L (7-40) H Alkaline Phosphatase 35 U/L (46-116) L Aspartate Amino Transferase (AST) 34 U/L (13-40) Total Bilirubin 0.6 mg/dL (0.2-1.0) Urinalysis Test 04/05/25 06:54 Urine Color Light-orange (Yellow) Urine Clarity Clear (Clear) Urine pH 6.0 (5.0-9.0) Urine Specific [place] > 1.050 (1.001-1.035) Urine Protein 2+ (Negative) H Urine Ketones 1+ (Negative) H Urine Blood 1+ /uL (Negative) H Urine Nitrite Negative (Negative) Urine Bilirubin Negative (Negative) Urine Urobilinogen Normal mg/dL (Negative) Urine Leukocyte Esterase Negative /uL (Negative) Urine RBC 8 /hpf (0 - 3) Urine Microscopic WBC 2 /HPF (0-3) Urine Squamous Epithelial Cells None seen /hpf (<5) Urine Amorphous Crystals Few /hpf (None Seen) Urine Bacteria None seen /hpf (None Seen) Urine Glucose Normal mg/dL (Normal) Microbiology Microbiology Date/Time Source Procedure Growth Status 04/05/25 10:30 Blood Blood Culture - Final NO GROWTH AFTER 5 DAYS OF INCUBATION. Complete Assessment/Plan Assessment/Plan #1 acute pancreatitis/necrosis in tail: Advance diet liquid pain control DC clinimex today per surgery plan to get repeat ct abdomen tomorrow #2 hypertensive emergency: on labetalol prn #3 essential tremor #4 bph Plan discussed with: Patient Date of Service: Apr 10, 2025 Billing Provider: KARLEY SOW MD Common Visit Codes: [id number] INP/OBS CARE(HIGH) KARLEY SOW MD Apr 10, 2025 15:45
[2025-04-11] VITALS (8 sets, daily range): BP systolic 113–147; BP diastolic 65–102; PULSE 81–93; RESP 16–20; TEMP 97.7–98.3; O2SAT 98–100
[2025-04-11 08:08] LABS: Albumin 4.7 g/dL (3.2-4.8); Anion Gap 10 (5-15); BUN/Creatinine Ratio 11.4 (10.0-20.0); Bilirubin, Total 0.6 mg/dL (0.2-1.0); Blood Urea Nitrogen 13 mg/dL (9-23); Carbon Dioxide 28 mmol/L (20-31); Chloride 102 mmol/L (98-107); Glucose 99 mg/dL (74-106); Potassium 3.6 mmol/L (3.5-5.1); Sodium 140 mmol/L (136-145); Total Protein 7.2 g/dL (5.7-8.2)
[2025-04-11 08:11] LABS: Alanine Aminotransferase 73 U/L (7-40); Alkaline Phosphatase 36 U/L (46-116); Calcium 10.4 mg/dL (8.7-10.4)
[2025-04-11 08:14] LABS: Hemoglobin 14.2 g/dL (13.5-17.5)
[2025-04-11 08:16] LABS: Hematocrit 41.0 % (41.0-53.0); Mean Corpuscular Hemoglobin 32.1 pg (28.0-32.0); Mean Corpuscular Volume 92.3 fL (80.0-100.0); Nucleated Red Blood Cells % 0.0 %
[2025-04-11 08:36] LABS: Lipase 270 U/L (12-53)
--- NOTE | 2025-04-11 10:54 | DVHPN2 ---
Progress Note Date Seen: Apr 11, 2025 Medical Necessity Reason Pt with a Central, PICC or Fol: No Subjective Patient reports: No new complaints Review of Systems: HEENT:Normal, CVS:Normal, RESPIRATORY:Normal, GI:Normal, :Normal, MSK:Normal, NEURO:Normal Objective vital signs Vital Sign Date Time Temp Pulse Resp B/P (MAP) Pulse Ox O2 Delivery O2 Flow Rate FiO2 04/11/25 09:00 98.1 85 16 121/92 (102) 100 98.1 04/11/25 08:00 Room Air* 0 21 Total Intake and Output 04/10/25 04/10/25 04/11/25 15:00 23:00 07:00 Intake Total 200 ml 1000 ml Balance 200 ml 1000 ml medications Current Medications Medications Dose Ordered Sig/Yunior Route Start Time Stop Time Status Last Admin Dose Admin Ondansetron HCl 4 mg Q4HP PRN IV 04/05/25 10:15 Docusate Sodium 100 mg BIDPRN PRN PO 04/05/25 10:15 Morphine Sulfate 4 mg Q3HPRN PRN IV 04/05/25 10:15 04/06/25 21:41 4 MG Nitroglycerin 0.4 mg Q5MINP PRN SL 04/05/25 10:15 Piperacillin Sod/ Tazobactam Sod 100 ml @ 25 mls/hr Q8H IV 04/05/25 20:00 04/11/25 04:49 25 MLS/HR Pantoprazole Sodium 40 mg DAILY IV 04/07/25 10:00 04/11/25 10:09 40 MG Labetalol HCl 10 mg Q2HPRN PRN IV 04/07/25 05:45 04/10/25 04:56 10 MG Lorazepam 1 mg Q6HP PRN IV 04/07/25 14:15 04/11/25 05:11 1 MG Diagnostic Test (Pha) 1 strip Q6HR 04/08/25 00:00 04/11/25 05:06 1 STRIP Insulin Human Regular FOLLOW SLIDING SCALE Q6HR SC 04/08/25 00:00 Dextrose 50 ml UD IV 04/07/25 22:15 Sodium Chloride 1,000 ml @ 100 mls/hr Q10H IV 04/08/25 13:30 04/11/25 01:30 100 MLS/HR Acetaminophen 650 mg Q6HP PRN PO 04/08/25 15:45 04/08/25 16:53 650 MG Examination: GENERAL:Normal, HEENT:Normal, NECK:Normal, LUNGS:Normal, CVS:Normal, ABDOMEN:Normal, MSK:Normal, SKIN:Normal, NEURO:Normal, :Normal laboratory and microbiology Laboratory Tests 04/11/25 06:16 Test 04/11/25 06:16 Range/Units Serum Glucose 99 74-106 mg/dL Microbiology Date/Time Source Procedure Growth Status 04/05/25 10:30 Blood Blood Culture - Final NO GROWTH AFTER 5 DAYS OF INCUBATION. Complete Problem List/Assessment/Plan Problem List/Assessment/Plan #1 acute pancreatitis/necrosis in tail: ivf, pain meds, clear liquid, repeat ct abdomen #2 hypertensive emergency: on labetalol prn #3 essential tremor #4 bph Plan discussed with: Patient My Orders My Orders Orders - NAZARIO HARPER MD Procedure Category Date Status Time Ct Ab Pel With Iv Con CT 04/11/25 Transmitted Only 10:51 Dietary Evaluation Review Comments: 2GNa Low Fat CCHO-60 diet Expected Outcomes/Goals: Gradual wt loss, controlled blood sugar Date of Service: Apr 11, 2025 Billing Provider: NAZARIO HARPER MD Common Visit Codes: [id number] INP/OBS CARE(HIGH) NAZARIO HARPER MD Apr 11, 2025 10:54
[2025-04-11 11:34] LABS: Hepatitis A Total Antibody Positive (Negative); Hepatitis B Surface Antigen Negative (Negative); Hepatitis C Antibody Negative (Negative)
[2025-04-11] MEDS ORDERED: IOHEXOL 350 MG/ML 100ML IJ ONE (13:43)
--- NOTE | 2025-04-11 15:26 | DVH ---
Indication: ACUTE PANCREATITIS Technique: CT axial images of the abdomen and pelvis are obtained with intravenous contrast. Coronal and sagittal reformats were obtained. Radiation Dose Information: CTDI volume is 15.47 mGy. Dose-length product is 433.96 mGy*cm Comparison: None FINDINGS: Lung bases demonstrate no pleural effusion. Adrenal glands, spleen unremarkable. Peripancreatic edema and stranding most pronounced along the looney creatic body and tail region. There is hypoenhancement of the pancreatic distal body and tail. This i nvolves about 50% of the pancreas parenchyma Hepatic steatosis. No CT evidence for cholelithiasis. The kidneys demonstrate no hydronephrosis. Stomach is partially distended. Small bowel loops are normal in caliber. Moderate volume stool in the colon. No secondary signs for appendicitis. The abdominal aorta is normal in caliber. Bladder is partially distended. No free pelvic fluid. No inguinal lymphadenopathy. Penile calcifications. [id number] thoracolumbar degenerative disc disease. Lumbar levocurvature IMPRESSION: Peripancreatic edema and stranding as described most consistent with pancreatitis. Hypoenhancement of the pancreatic body and distal tail suggestive of acute necrotizing pancreatitis Other findings as described
--- NOTE | 2025-04-11 18:22 | DVHPN2 ---
Progress Note - Dictate Date Seen: Apr 11, 2025 Medical Necessity Reason Pt with a Central, PICC or Fol: No Subjective E: no major events o/n. no complaints. denies abd pain. vital signs Vital Sign Date Time Temp Pulse Resp B/P (MAP) Pulse Ox O2 Delivery O2 Flow Rate FiO2 04/11/25 17:00 98.3 87 19 123/90 (101) 98 98.3 04/11/25 08:00 Room Air* 0 21 Total Intake and Output 04/10/25 04/10/25 04/11/25 15:00 23:00 07:00 Intake Total 200 ml 1000 ml Balance 200 ml 1000 ml medications Current Medications Medications Dose Ordered Sig/Yunior Route Start Time Stop Time Status Last Admin Dose Admin Ondansetron HCl 4 mg Q4HP PRN IV 04/05/25 10:15 Docusate Sodium 100 mg BIDPRN PRN PO 04/05/25 10:15 Morphine Sulfate 4 mg Q3HPRN PRN IV 04/05/25 10:15 04/06/25 21:41 4 MG Nitroglycerin 0.4 mg Q5MINP PRN SL 04/05/25 10:15 Piperacillin Sod/ Tazobactam Sod 100 ml @ 25 mls/hr Q8H IV 04/05/25 20:00 04/11/25 12:58 25 MLS/HR Pantoprazole Sodium 40 mg DAILY IV 04/07/25 10:00 04/11/25 10:09 40 MG Labetalol HCl 10 mg Q2HPRN PRN IV 04/07/25 05:45 04/10/25 04:56 10 MG Lorazepam 1 mg Q6HP PRN IV 04/07/25 14:15 04/11/25 16:34 1 MG Diagnostic Test (Pha) 1 strip Q6HR 04/08/25 00:00 04/11/25 17:41 1 STRIP Insulin Human Regular FOLLOW SLIDING SCALE Q6HR SC 04/08/25 00:00 Dextrose 50 ml UD IV 04/07/25 22:15 Sodium Chloride 1,000 ml @ 100 mls/hr Q10H IV 04/08/25 13:30 04/11/25 01:30 100 MLS/HR Acetaminophen 650 mg Q6HP PRN PO 04/08/25 15:45 04/08/25 16:53 650 MG objective GEN: NAD ABD: soft. NT/ND. CT ABD/PELVIS: Peripancreatic edema and stranding as described most consistent with pancreatitis. Hypoenhancement of the pancreatic body and distal tail suggestive of acute necrotizing pancreatitis laboratory and microbiology Laboratory Tests 04/11/25 06:16 Test 04/11/25 06:16 Range/Units Serum Glucose 99 74-106 mg/dL Assessment/Plan A: 1. Acute pancreatitis but clinically stable. P: 1. no acute indications for surgery. diet per GI. Dietary Evaluation Review Comments: 2GNa Low Fat CCHO-60 diet Expected Outcomes/Goals: Gradual wt loss, controlled blood sugar Plan discussed with: Patient KITTY VENCES MD Apr 11, 2025 18:22
--- NOTE | 2025-04-11 18:34 | DVHPN2 ---
Progress Note - Dictate Date Seen: Apr 11, 2025 Medical Necessity Reason Pt with a Central, PICC or Fol: No Subjective No new complaints, resting comfortably Tolerating clear liquid diet patient feels much better, abdomen is less tender and less distended, amylase decreasing: Patient states his abdominal pain has improved Patient does have mild abdominal distention Patient stated he had a bowel movement but no bowel movement is recorded Lipase is trending upwards on clear liquid diet vital signs Vital Sign Date Time Temp Pulse Resp B/P (MAP) Pulse Ox O2 Delivery O2 Flow Rate FiO2 04/11/25 17:00 98.3 87 19 123/90 (101) 98 98.3 04/11/25 08:00 Room Air* 0 21 Total Intake and Output 04/10/25 04/10/25 04/11/25 15:00 23:00 07:00 Intake Total 200 ml 1000 ml Balance 200 ml 1000 ml medications Current Medications Medications Dose Ordered Sig/Yunior Route Start Time Stop Time Status Last Admin Dose Admin Ondansetron HCl 4 mg Q4HP PRN IV 04/05/25 10:15 Docusate Sodium 100 mg BIDPRN PRN PO 04/05/25 10:15 Morphine Sulfate 4 mg Q3HPRN PRN IV 04/05/25 10:15 04/06/25 21:41 4 MG Nitroglycerin 0.4 mg Q5MINP PRN SL 04/05/25 10:15 Piperacillin Sod/ Tazobactam Sod 100 ml @ 25 mls/hr Q8H IV 04/05/25 20:00 04/11/25 12:58 25 MLS/HR Pantoprazole Sodium 40 mg DAILY IV 04/07/25 10:00 04/11/25 10:09 40 MG Labetalol HCl 10 mg Q2HPRN PRN IV 04/07/25 05:45 04/10/25 04:56 10 MG Lorazepam 1 mg Q6HP PRN IV 04/07/25 14:15 04/11/25 16:34 1 MG Diagnostic Test (Pha) 1 strip Q6HR 04/08/25 00:00 04/11/25 17:41 1 STRIP Insulin Human Regular FOLLOW SLIDING SCALE Q6HR SC 04/08/25 00:00 Dextrose 50 ml UD IV 04/07/25 22:15 Sodium Chloride 1,000 ml @ 100 mls/hr Q10H IV 04/08/25 13:30 04/11/25 01:30 100 MLS/HR Acetaminophen 650 mg Q6HP PRN PO 04/08/25 15:45 04/08/25 16:53 650 MG objective General Appearance: Alert, Oriented X3, Cooperative, no distress HEENT: Atraumatic, PERRLA, EOMI, Mucous membr. moist/pink Respiratory: Clear to auscultation, Normal air movement Cardiovascular: Regular rate, Normal S1, Normal S2, No murmurs Abdominal: Normal bowel sounds, Soft, No hepatospenomegaly, No masses, abdominal distention with hypoactive bowel sounds Extremities: No clubbing, No cyanosis, No edema, Normal pulses, No tenderness/swelling Skin: No rashes, No breakdown, No significant lesion Neuro: Normal gait, Normal speech, Strength at 5/5 X4 ext, Normal tone, Sensation intact, Cranial nerves 3-12 NL Psych/Mental Status: Mental status NL, Mood NL laboratory and microbiology Laboratory Tests 04/11/25 06:16 Test 04/11/25 06:16 Range/Units Serum Glucose 99 74-106 mg/dL Repeat CT SCAN ABD PELVIS Peripancreatic edema and stranding most pronounced along the pancreatic body and tail region. There is hypoenhancement of the pancreatic distal body and tail suggestive of acute necrotizing pancreatitis. This involves about 50% of the pancreas parenchyma Problems(with codes): (1) Ileus, unspecified (2) Intractable abdominal pain (3) Acute necrotizing pancreatitis (4) Elevated liver enzymes (5) Elevated lipase (6) Abnormal finding on GI tract imaging Prognosis Assessment plan Patient continues to have elevated lipase which is increasing on clear liquid diet CT scan findings consistent with persistent mild acute necrotizing pancreatitis involving the tail Recommend starting this patient on IV Clinimix at 42 mL/hour I do not feel comfortable advancing his diet at this time but we will re- evaluate in a.m. Continue to monitor labs Patient will likely need pancreatic enzymes in the long run Dietary Evaluation Review Comments: 2GNa Low Fat CCHO-60 diet Expected Outcomes/Goals: Gradual wt loss, controlled blood sugar Plan discussed with: Other (Dr Workman) MIKI YEAGER MD Apr 11, 2025 18:34
[2025-04-11] MEDS: DOCUSATE SOD 100 MG CAP PO SCH (21:17)
[2025-04-12 05:00] VITALS: BP 136/81; PULSE 99; RESP 17; TEMP 97.3; O2SAT 97
[2025-04-12 07:53] LABS: Albumin 4.6 g/dL (3.2-4.8); Total Protein 7.1 g/dL (5.7-8.2)
[2025-04-12 07:54] LABS: Alanine Aminotransferase 56.0 U/L (7-40); Alkaline Phosphatase 35.0 U/L (46-116); Amylase 207.0 U/L (30-118); Bilirubin, Direct 0.2 mg/dL (<0.3); Bilirubin, Total 0.6 mg/dL (0.2-1.0)
[2025-04-12 08:30] VITALS: BP 130/88; PULSE 85; RESP 14; RESP 18; TEMP 98.4; O2SAT 97
[2025-04-12 08:49] LABS: Lipase 311.0 U/L (12-53)
--- NOTE | 2025-04-12 11:36 | DVHDS2 ---
Discharge Summary Date of Admission Apr 05, 2025 at 10:03 Date of Discharge: Apr 12, 2025 Labs/Diagnostic Data: Laboratory Results Test 04/12/25 06:21 04/11/25 06:16 04/11/25 05:05 04/10/25 06:26 Total Bilirubin 0.6 mg/dL (0.2-1.0) Direct Bilirubin 0.2 mg/dL (<0.3) Aspartate Amino Transferase (AST) 30 U/L (13-40) Alanine Aminotransferase (ALT) 56 U/L (7-40) Alkaline Phosphatase 35 U/L (46-116) Total Protein 7.1 g/dL (5.7-8.2) Albumin 4.6 g/dL (3.2-4.8) Amylase Level 207 U/L (30-118) Lipase 311 U/L (12-53) White Blood Count 7.9 10^3/uL (4.4-10.8) Red Blood Count 4.44 10^6/uL (4.5-5.90) Hemoglobin 14.2 g/dL (13.5-17.5) Hematocrit 41.0 % (41.0-53.0) Mean Corpuscular Volume 92.3 fL (80.0-100.0) Mean Corpuscular Hemoglobin 32.1 pg (28.0-32.0) Mean Corpuscular Hemoglobin Concent 34.8 g/dL (32.0-36.0) Red Cell Distribution Width 15.3 % (11.8-14.3) Platelet Count 557 10^3/uL (140-450) Mean Platelet Volume 8.1 fL (6.9-10.8) Neutrophils (%) (Auto) 64.5 % (37.0-80.0) Lymphocytes (%) (Auto) 17.9 % (10.0-50.0) Monocytes (%) (Auto) 15.1 % (0.0-12.0) Eosinophils (%) (Auto) 2.0 % (0.0-7.0) Basophils (%) (Auto) 0.5 % (0.0-2.0) Neutrophils # (Auto) 5.1 10 ^3/uL (1.6-8.6) Lymphocytes # (Auto) 1.4 10 ^3/uL (0.4-5.4) Monocytes # (Auto) 1.2 10 ^3/uL (0-1.3) Eosinophils # (Auto) 0.2 10 ^3/uL (0-0.8) Basophils # (Auto) 0 10 ^3/uL (0-0.2) Nucleated Red Blood Cells 0.0 % Sodium Level 140 mmol/L (136-145) Potassium Level 3.6 mmol/L (3.5-5.1) Chloride Level 102 mmol/L (98-107) Carbon Dioxide Level 28 mmol/L (20-31) Anion Gap 10 (5-15) Blood Urea Nitrogen 13 mg/dL (9-23) Creatinine 1.14 mg/dL (0.700-1.30) Glomerular Filtration Rate Calc 80 mL/min (>90) BUN/Creatinine Ratio 11.4 (10.0-20.0) Serum Glucose 99 mg/dL (74-106) Calcium Level 10.4 mg/dL (8.7-10.4) POC Glucose 121 mg/dl (70-106) Phosphorus Level 3.0 mg/dL (2.4-5.1) Magnesium Level 2.0 mg/dL (1.6-2.6) Ferritin 515.0 ng/mL (22-322) Hepatitis A Antibody Total Positive (Negative) Hepatitis B Surface Antigen Negative (Negative) Hepatitis B Surface Antibody Positive (Negative) Hepatitis B Core Total Antibody Negative (Negative) Hepatitis C Antibody Negative (Negative) Test 04/07/25 03:52 04/05/25 06:54 04/05/25 06:30 Prothrombin Time 10.9 sec (9.3-11.8) Prothrombin Time INR 1.03 (0.9-1.15) Activated Partial Thromboplast Time 32.8 SEC (24.5-34.5) Urine Color Light-orange (Yellow) Urine Clarity Clear (Clear) Urine pH 6.0 (5.0-9.0) Urine Specific [place] > 1.050 (1.001-1.035) Urine Protein 2+ (Negative) Urine Ketones 1+ (Negative) Urine Blood 1+ /uL (Negative) Urine Nitrite Negative (Negative) Urine Bilirubin Negative (Negative) Urine Urobilinogen Normal mg/dL (Negative) Urine Leukocyte Esterase Negative /uL (Negative) Urine RBC 8 /hpf (0 - 3) Urine Microscopic WBC 2 /HPF (0-3) Urine Squamous Epithelial Cells None seen /hpf (<5) Urine Amorphous Crystals Few /hpf (None Seen) Urine Bacteria None seen /hpf (None Seen) Urine Glucose Normal mg/dL (Normal) Triglycerides Level 338 mg/dL (< 150) Other Laboratory Tests 04/11/25 06:16 Brief Hx & Hospital Course: see dictated note Condition at Discharge: Fair Final Diagnosis/Problems List acute pancreatitis Discharge Disposition: Home Discharge Instruct/Medications Diet: See Comment Diet comment: full liquid, low fat diet Activity: No Restrictions, As Tolerated Follow Up/Referral: fu with pcp/gi in 1 wk Medications: resume home meds fu ct abd with contrast in 1 month Scheduled Cetirizine Hcl (Zyrtec Allergy), 10 MG PO DAILY, (Reported) Duloxetine HCl (Duloxetine HCl), 10 MG PO DAILY, (Reported) Lisinopril (Lisinopril), 10 MG PO DAILY, (Reported) Tamsulosin Hcl (Flomax), 1 CAP PO DAILY, (Reported) Discharge Statement: "Patient was advised to return to the ER or call 911 if any headaches, dizziness, shortness of breath, chest pain, abdominal pain, bleeding, fevers, or worsening of medical condition. Patient was counseled about treatment plan, medications, possible side effects, patientverbalized understanding. All questions were answered to the best of my ability. This discharge took greater then 30 minutes in planning, reviewing documentation, counseling the patient, and discussing with other team members." ASSESSMENT ASSESSMENT Assessment acute pancreatitis Date of Service: Apr 12, 2025 Billing Provider: NAZARIO HARPER MD Common Visit Codes: 46709-DET/OBS DISCH DAY >30min NAZARIO HARPER MD Apr 12, 2025 11:36
--- NOTE | 2025-04-12 11:54 | DVHDS ---
HISTORY OF PRESENT ILLNESS: The patient is a 44-year-old gentleman who was admitted with history of abdominal pain, abdominal distention, and was transferred from the [facility]. HOSPITAL COURSE: The patient was noted to have acute pancreatitis with necrotizing pancreatitis involving the tail. The patient was seen in GI consults by Dr. Dean and surgery consult by Dr. Pendleton. His lipase was elevated at 495. The patient had abdominal ultrasound that showed no gallstones but coarse liver echotexture. The patient had a CT of the head that showed no acute intracranial abnormality. Blood cultures have been negative. The patient is now pain free and wishes to go home. I have discussed this with Dr. Dean who has agreed to his discharge provided the patient maintains a full liquid diet and returns back to the hospital if he gets increasing abdominal pain and bloating. The patient has been told to have a repeat CT with contrast in about a month and to follow up with his primary and GI. He is to avoid alcohol and be on a low-fat diet. The patient also has been told about the possibility of needing pancreatic enzyme replacement in the future and the risk for diabetes. FINAL DIAGNOSES: * Acute necrotizing pancreatitis. * Hypertensive emergency. * Essential tremor. * BPH. * Obesity. Time spent in discharge planning and review of plan with the patient and clinical practice consultant was 39 minutes. MD KIARRA Calloway/LALA TID: [id number] RECEIPT: [id number]
[2025-04-12 13:00] VITALS: BP 131/86; PULSE 91; RESP 17; TEMP 97.4; O2SAT 100
[2025-04-12 14:39] VITALS: BP 131/86; PULSE 91; RESP 17; TEMP 97.4; O2SAT 100
--- NOTE | 2025-04-12 21:46 | DVHPN2 ---
Progress Note - Dictate Date Seen: Apr 12, 2025 (Time of visit 3:00 p.m.) Medical Necessity Reason Pt with a Central, PICC or Fol: No Subjective No new complaints, resting comfortably Tolerating clear liquid diet patient feels much better, abdomen is less tender and less distended Patient states his abdominal pain has improved Patient is requesting a discharge home New CT findings discussed Lipase is trending upwards on clear liquid diet vital signs Vital Sign Date Time Temp Pulse Resp B/P (MAP) Pulse Ox O2 Delivery O2 Flow Rate FiO2 04/12/25 14:39 97.4 91 17 100 04/12/25 13:00 131/86 (101) 04/12/25 08:30 Room Air* 0 21 Total Intake and Output 04/11/25 04/11/25 04/12/25 15:00 23:00 07:00 Intake Total 100 ml 280 ml 400 ml Output Total 600 ml Balance 100 ml 280 ml -200 ml objective General Appearance: Alert, Oriented X3, Cooperative, no distress HEENT: Atraumatic, PERRLA, EOMI, Mucous membr. moist/pink Respiratory: Clear to auscultation, Normal air movement Cardiovascular: Regular rate, Normal S1, Normal S2, No murmurs Abdominal: Normal bowel sounds, Soft, No hepatospenomegaly, No masses, abdominal distention with hypoactive bowel sounds Extremities: No clubbing, No cyanosis, No edema, Normal pulses, No tenderness/swelling Skin: No rashes, No breakdown, No significant lesion Neuro: Normal gait, Normal speech, Strength at 5/5 X4 ext, Normal tone, Sensation intact, Cranial nerves 3-12 NL Psych/Mental Status: Mental status NL, Mood NL laboratory and microbiology Laboratory Tests 04/11/25 06:16 Test 04/11/25 06:16 Range/Units Serum Glucose 99 74-106 mg/dL Problems(with codes): (1) Abnormal finding on GI tract imaging (2) Elevated lipase (3) Elevated liver enzymes (4) Ileus, unspecified (5) Intractable abdominal pain (6) Acute necrotizing pancreatitis Prognosis Plan Discharge planning is in progress Patient could try a full liquid diet but needs to maintain that for at least a week Repeat labs in one week Outpatient follow up with GI Services 1-2 weeks Discontinue alcohol Patient may need pancreatic enzymes in the future Patient was instructed to return to the ER if he has worsening symptoms of abdominal pain nausea vomiting diarrhea or fevers Dietary Evaluation Review Comments: 2GNa Low Fat CCHO-60 diet Expected Outcomes/Goals: Gradual wt loss, controlled blood sugar Plan discussed with: Other (Dr Workman) MIKI YEAGER MD Apr 12, 2025 21:46
== END 2025-04-12 15:08 | disposition home or self-care (01) | DRG 439 ==
LOC: ER 06:12 → EDBD 06:12 → OVERFLOW 10:03 → TELE-EAST 04-07 17:21
PROVIDERS: ADMIT Internal Medicine; ATTEND Internal Medicine
PROC: 02HV33Z Insertion of Infusion Device into Superior Vena Cava, Percutaneous Approach (ICD-10-PCS; principal; 2025-04-05)
DX: K85.91 Acute pancreatitis with uninfected necrosis, unspecified (principal); I16.1 Hypertensive emergency; E66.9 Obesity, unspecified; I12.9 Hypertensive chronic kidney disease with stage 1 through stage 4 chronic kidney disease, or unspecified chronic kidney disease; N18.9 Chronic kidney disease, unspecified; E83.52 Hypercalcemia; G25.0 Essential tremor; N40.0 Benign prostatic hyperplasia without lower urinary tract symptoms; Z88.8 Allergy status to other drugs, medicaments and biological substances; Z87.442 Personal history of urinary calculi; Z82.61 Family history of arthritis; Z68.29 Body mass index [BMI] 29.0-29.9, adult; Z79.899 Other long term (current) drug therapy
CPT/HCPCS: 36415; 70450; 71045; 74177; 76705; 80053; 80076; 81001; 82150; 82728; 82962; 83690; 83735; 84100; 84478; 85025; 85610; 85730; 86704; 86706; 86708; 86803; 87040; 87340; 96361; 96374; 99291; G0378; J2003; J2405; J2470; J2543; J3480